=== PATIENT | female | born 1965 | race Caucasian/White ===

== ENCOUNTER → 2016-12-09 | Outpatient (CLI) | payer MEDICAID ==
--- NOTE | 2016-12-10 15:32 | MR ---
EXAM DATE: 12/09/16 PATIENT'S AGE: 51 Patient: ROB CORTES Facility: [place], [place] Site . Site : 1965 Study: MRI Spine Cervical [id number] 5:40:21 PM Ordering Physician: Debby Benton Final Report: Indication: 51-year-old female. Cervical spondylosis with myelopathy. Cervical fusion. Technique: T1-T2 and STIR sagittal images with multilevel T2 axial acquisitions. Findings: There is a cervical gibbus with the apex at C5. There is cystic spinal cord myelomalacia with at C5-6 with hazy T2 prolongation in the spinal cord from approximately the C4-5 to C6-7. Left central retropulsion at C6 indents the spinal cord. The dorsal subarachnoid space is intact. Prevertebral tissues are normal. Cerebellar tonsils normally situated. C2-3: Minor annular bulge. No significant central or foraminal narrowing. Moderate right SI arthrosis. C3-4: Mild disc bulge/marginal spurring. No significant central or foraminal narrowing. C4-5: Findings suggest interbody fusion. Central canal and foramina adequately decompressed. C5-6: Findings suggest interbody fusion. Moderate right foraminal narrowing. C6-7: Grade 1 retrolisthesis. Left central disc osteophyte complex indents the spinal cord. Mild left foraminal narrowing. C7-T1 and T1-2: Minor spondylosis. No significant central or foraminal narrowing. T2-3: No central or foraminal stenosis. T3-4: Mild spondylosis. No significant central or foraminal narrowing. T4-5: No central or foraminal stenosis. Impression MRI cervical spine/limited thoracic to T5. : 1. Cervical gibbus with apex at C5. 2. Cystic spinal cord myelomalacia at C5-6 with T2 prolongation in the spinal cord from approximately C4-5 to C6-7. 3. Retropulsion at C5 contacts the spinal cord. Dorsal subarachnoid space is intact. 4. Spondylosis/retrolisthesis/left disc osteophyte complex at C6-7 indents the left hemisphere the spinal cord. 5. Moderate right C5-6 foraminal narrowing. 6. Interbody fusions at C4-5 and C5-6. 7. Moderate C2-3 facet arthrosis. Dictated by Gene Phan MD @ Dec 10 2016 8:31AM (Electronic Signature) Report Signed by Proxy and Original Signed Document filed in the Medical Record. MTDD
== END ==
LOC: MW.MRI 16:46
PROVIDERS: ATTEND Family Medicine
DX: M47.12 Other spondylosis with myelopathy, cervical region (principal); M47.892 Other spondylosis, cervical region
CPT/HCPCS: 72141; 72141-26

== ENCOUNTER 2020-04-24 14:45 | Emergency (ER) | payer MEDICARE, MEDICAID ==
--- NOTE | 2020-04-24 15:19 | EDM.PDOC ---
ED HPI GENERAL MEDICAL PROBLEM - General Chief Complaint: Back Pain or Injury Stated Complaint: BACK PAIN Time Seen by Provider: 04/24/20 14:48 Source of Information: Reports: Patient History Limitations: Reports: No Limitations - History of Present Illness INITIAL COMMENTS - FREE TEXT/NARRATIVE: Presents reporting mid to lower back pain. The patient states that she has chronic back pain managed by fentanyl patch 100mcg q3d and oxycodone every 4 hours orally. She states that her mid back pain has intensified over the last 3-4 weeks. Now, she has so much pain it hurts her back to walk. She states that she saw her primary provider earlier today and had X-rays and blood work done. She and her room-mate are under the impression that she can come to the hospital and be admitted. She denies any other medical problems or symptoms. No bowel or bladder problems, no tingling or numbness, no dysuria or fevers, no lightheadedness. She can walk, bear weight and transfer. - Related Data Allergies Allergy/AdvReac Type Severity Reaction Status Date / Time No Known Allergies Allergy Verified 04/24/20 14:59 Home Meds: Home Meds Baclofen [Lioresal] 1 - 2 tab PO TID PRN 10/07/16 [History] amLODIPine [Norvasc] 1 tab PO DAILY 10/07/16 [History] oxyCODONE HCl/Acetaminophen [Percocet 10-325 mg Tablet] 1 tab PO QID PRN 10/07/16 [History] Docusate Sodium [Stool Softener] 50 mg PO DAILY 04/24/20 [History] Lidocaine 1 each TP DAILY 04/24/20 [History] Potassium Citrate [Potassium Citrate ER] 5 meq PO DAILY 04/24/20 [History] fentaNYL [Duragesic] 1 patch TD Q72H 04/24/20 [History] Past Medical History - Past Health History Medical/Surgical History: Denies Medical/Surgical History HEENT History: Reports: Impaired Vision Cardiovascular History: Reports: Hypertension Respiratory History: Reports: Pneumonia, Recurrent Other Respiratory History: Pneumonia Gastrointestinal History: Reports: None Genitourinary History: Reports: None 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: Musculoskeletal History: Reports: Back Pain, Chronic, Neck Pain, Chronic Other Musculoskeletal History: chronic neck pain Neurological History: Reports: None Psychiatric History: Reports: None Endocrine/Metabolic History: Reports: None Hematologic History: Reports: None Immunologic History: Reports: None Oncologic (Cancer) History: Reports: None Dermatologic History: Reports: None - Infectious Disease History Infectious Disease History: Reports: None - Past Surgical History GI Surgical History: Reports: Cholecystectomy Female Surgical History: Reports: Section Neurological Surgical History: Reports: C-Spine, Spinal Fusion, Thoracic Spine Musculoskeletal Surgical History: Reports: Other (See Below) Other Musculoskeletal Surgeries/Procedures:: Neck sugery Social & Family History - Family History Family Medical History: Noncontributory - Caffeine Use Caffeine Use: Reports: Coffee Caffeine Use Comment: 2-3cups/day ED ROS GENERAL - Review of Systems Review Of Systems: Comprehensive ROS is negative, except as noted in HPI. ED EXAM,LOWER BACK PAIN/INJURY - Physical Exam Exam: See Below Exam Limited By: No Limitations General Appearance: Alert, No Apparent Distress Ears: Normal External Exam Nose: Normal Inspection Throat/Mouth: Normal Inspection Head: Atraumatic, Normocephalic Neck: Normal Inspection Respiratory/Chest: No Respiratory Distress, Lungs Clear, Normal Breath Sounds Cardiovascular: Normal Peripheral Pulses, Regular Rate, Rhythm GI/Abdominal: Soft Back Exam: Vertebral Tenderness (T5-L5). No: CVA Tenderness (L), CVA Tenderness (R) Extremities: Normal Inspection, Normal Range of Motion Neurological: Alert, Normal Dorsiflexion, Normal Plantar Flexion, Normal Reflexes, No Motor/Sensory Deficits, Oriented x 3. No: Saddle Anesthesia, Difficulty Walking Psychiatric: Normal Affect, Normal Mood Skin Exam: Warm, Dry, Intact, Normal Color, No Rash Lymphatic: No Adenopathy Course - Vital Signs Last Recorded V/S: Last Vital Signs Temp 36.6 C 04/24/20 15:03 Pulse 102 H 04/24/20 16:13 Resp 15 04/24/20 16:13 BP 126/96 H 04/24/20 16:13 Pulse Ox 96 04/24/20 16:13 - Orders/Labs/Meds Orders: Active Orders 24 hr Category Date Time Status Abdomen Pelvis w Cont [CT] Stat Exams 04/24/20 16:25 Ordered Chest w Cont [CT] Stat Exams 04/24/20 16:27 Ordered - Re-Assessments/Exams Free Text/Narrative Re-Assessment/Exam: 04/24/20 16:[address] Chetan Guardado, the patient's primary physician. He states that he did indeed see the patient earlier this afternoon. He states that he knows the patient very well as he sees her every 3 months for the last 7 years per her pain management protocol. He states that she came in to the clinic today with a complaint that 10 days ago without provocation her mid and low chronic back pain exacerbated. He did plain film x-rays which indicated degene rative disc disease but nothing acute. Chemistries and hematology were within normal limits. She did not have an elevated white count and she was not anemic. She was having difficulty walking due to the pain. His concern was that we rule out vascular or abdominal pathology as a source of her current exacerbation. In addition, admission for pain control may be a consideration. Free Text/Narrative Re-Assessment/Exam: 04/24/20 19:28 Patient was given Toradol IV and then walked in the [place]ajardo without assistance, up and down out of chair. Steady on feet. No complaint of pain. Departure - Departure Time of Disposition: 19:29 Disposition: Home, Self-Care 01 Condition: Fair Clinical Impression: Lumbar disc disease, Thoracic disc disease - Discharge Information Instructions: Chronic Back Pain Referrals: Chetan Guardado MD [Primary Care Provider] - Forms: ED Department Discharge Additional Instructions: The following information is given to patients seen in the emergency department who are being discharged to home. This information is to outline your options for follow-up care. We provide all patients seen in our emergency department with a follow-up referral. The need for follow-up, as well as the timing and circumstances, are variable depending upon the specifics of your emergency department visit. If you don't have a primary care physician on staff, we will provide you with a referral. We always advise you to contact your personal physician following an emergency department visit to inform them of the circumstance of the visit and for follow-up with them and/or the need for any referrals to a consulting specialist. The emergency department will also refer you to a specialist when appropriate. This referral assures that you have the opportunity for follow-up care with a specialist. All of these measure are taken in an effort to provide you with optimal care, which includes your follow-up. Under all circumstances we always encourage you to contact your private physician who remains a resource for coordinating your care. When calling for follow-up care, please make the office aware that this follow-up is from your recent emergency room visit. If for any reason you are refused follow-up, please contact the [facility] Emergency Department at and asked to speak to the emergency department charge nurse. 1. Were able to get up, transfer from and to a chair and to bed and walk in the hallway unassisted. 2. Continue your current pain management regimen 3. Ask your physician for an order for physical therapy 4. Follow up with Dr. Guardado Sepsis Event Note (ED) - Focused Exam Vital Signs: Vital Signs Temp Pulse Resp BP Pulse Ox 04/24/20 16:13 102 H 15 126/96 H 96 04/24/20 15:03 36.6 C 110 H 15 132/90 99 - My Orders Last 24 Hours: My Active Orders 04/24/20 16:25 Abdomen Pelvis w Cont [CT] Stat 04/24/20 16:27 Chest w Cont [CT] Stat - Assessment/Plan Last 24 Hours: My Active Orders 04/24/20 16:25 Abdomen Pelvis w Cont [CT] Stat 04/24/20 16:27 Chest w Cont [CT] Stat
[2020-04-24] MEDS ORDERED: Iopamidol 755 Mg/ML 100 ML Bottle IVPUSH STA (17:17)
--- NOTE | 2020-04-24 17:38 | CT ---
CT abdomen and pelvis Technique: Multiple axial sections were obtained from above the dome of the diaphragm inferiorly through the pubic symphysis. Intravenous contrast was utilized. No oral contrast has been given. Comparison: No prior abdominal imaging is available. Findings: 2 small adjacent abnormalities are noted within the dome of the right lobe of the liver most likely representing minimal cysts. Spleen appears within normal limits in size. There is a small amount of subcapsular low density being seen next to the spleen most likely due to small amount of old subcapsular blood. Adrenal glands show no nodule. Pancreas shows no discrete abnormality. CBD is dilated up to 1.5 cm. Prior cholecystectomy appears to be present. Kidneys show symmetric contrast enhancement without hydronephrosis or mass. Aorta shows no aneurysm with atherosclerotic change. This atherosclerotic change continues into the iliac vessels. Appendix is seen which is normal. No pelvic mass or adenopathy is seen. No free fluid or inflammatory change is appreciated. Fluid filled small bowel is noted which does not appear to be dilated. Bone window settings were reviewed which show scattered degenerative change within the spine. Impression: 1. Dilated CBD at 1.5 cm. This may be residual from prior cholecystectomy but please correlate that patient has no abnormal biliary enzymes. 2. Small amount of subcapsular fluid adjacent to the spleen most likely representing an old and small subcapsular hematoma. 3. Other nonacute findings as noted above. Diagnostic code #3 This report was dictated in MDT
--- NOTE | 2020-04-24 17:38 | CT ---
CT chest Technique: Multiple axial sections through the chest were obtained. Intravenous contrast was utilized. Findings: Aorta shows atherosclerotic change without aneurysm or dissection. Pulmonary arteries show no discrete pulmonary embolism within the visualized pulmonary arteries. Mediastinum and hilar regions show no adenopathy. No axillary adenopathy is noted. Very minimal pericardial effusion is seen. Lungs show emphysematous change. No acute parenchymal change is appreciated. Bone window settings were reviewed. Old right-sided rib fractures are noted which appear healed. Previous lower cervical spine surgery is noted. Mild scattered disc space narrowing and endplate spurring is noted within the thoracic spine. Impression: 1. Findings believed incidental as noted above. 2. Emphysematous change. 3. Nothing acute is seen. Diagnostic code #2 This report was dictated in MDT
[2020-04-24] MEDS ORDERED: Ketorolac 30 MG/ML SDV IVPUSH ONE (18:27)
[2020-04-24 19:35] VITALS: BP 128/74; PULSE 87
== END 2020-04-24 19:44 | disposition home or self-care (01) ==
LOC: MW.ED 14:45
DX: M51.9 Unspecified thoracic, thoracolumbar and lumbosacral intervertebral disc disorder (principal); I10 Essential (primary) hypertension; Z98.890 Other specified postprocedural states; Z79.899 Other long term (current) drug therapy
CPT/HCPCS: 71260; 74177; 96374; 99283; J1885; Q9967; 99284

== ENCOUNTER 2021-08-14 13:58 | Inpatient (IN) | payer MEDICARE, MEDICAID ==
--- NOTE | 2021-08-14 14:36 | EDM.PDOC ---
ED HPI GENERAL MEDICAL PROBLEM - General Chief Complaint: General Stated Complaint: EMS Time Seen by Provider: 08/14/21 14:10 general Pain Score (Numeric/FACES): 10 - Related Data Allergies Allergy/AdvReac Type Severity Reaction Status Date / Time No Known Allergies Allergy Verified 08/14/21 14:01 Home Meds: Home Meds Baclofen [Lioresal] 1 - 2 tab PO TID PRN 10/07/16 [History] amLODIPine [Norvasc] 1 tab PO DAILY 10/07/16 [History] oxyCODONE HCl/Acetaminophen [Percocet 10-325 mg Tablet] 1 tab PO QID PRN 10/07/16 [History] Docusate Sodium [Stool Softener] 50 mg PO DAILY 04/24/20 [History] Lidocaine 1 each TP DAILY 04/24/20 [History] Potassium Citrate [Potassium Citrate ER] 5 meq PO DAILY 04/24/20 [History] fentaNYL [Duragesic] 1 patch TD Q72H 04/24/20 [History] Past Medical History - Past Health History Medical/Surgical History: Denies Medical/Surgical History HEENT History: Reports: Impaired Vision Cardiovascular History: Reports: Hypertension Respiratory History: Reports: Pneumonia, Recurrent Other Respiratory History: Pneumonia Gastrointestinal History: Reports: None Genitourinary History: Reports: None 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: Musculoskeletal History: Reports: Back Pain, Chronic, Neck Pain, Chronic Other Musculoskeletal History: chronic neck pain Neurological History: Reports: None Psychiatric History: Reports: None Endocrine/Metabolic History: Reports: None Hematologic History: Reports: None Immunologic History: Reports: None Oncologic (Cancer) History: Reports: None Dermatologic History: Reports: None - Infectious Disease History Infectious Disease History: Reports: None - Past Surgical History Head Surgeries/Procedures: Reports: None HEENT Surgical History: Reports: None Cardiovascular Surgical History: Reports: None GI Surgical History: Reports: Cholecystectomy Female Surgical History: Reports: Section Endocrine Surgical History: Reports: None Neurological Surgical History: Reports: C-Spine, Spinal Fusion, Thoracic Spine Musculoskeletal Surgical History: Reports: Other (See Below) Other Musculoskeletal Surgeries/Procedures:: Neck sugery Oncologic Surgical History: Reports: None Dermatological Surgical History: Reports: None Social & Family History - Family History Family Medical History: No Pertinent Family History - Caffeine Use Caffeine Use: Reports: Coffee Caffeine Use Comment: 2-3cups/day #1 Interpretation EKG Interpretation Comments: EKG done 08/14/2021 at 2:15 PM shows sinus tachycardia heart rate 117 [place] 117 QT duration [address] [place] [address] changes consistent with possible ischemia compared to 10/07/2016 no change impression no acute ischemia Course - Vital Signs Last Recorded V/S: Last Vital Signs Temp 36.8 C 08/14/21 14:01 Pulse 92 08/14/21 15:20 Resp 16 08/14/21 15:20 BP 96/63 08/14/21 15:20 Pulse Ox 98 08/14/21 15:20 - Orders/Labs/Meds Orders: Active Orders 24 hr Category Date Time Status RT Aerosol Therapy [RC] ASDIRECTED Care 08/14/21 14:41 Active Ang Chest [CT] Stat Exams 08/14/21 17:15 Taken CULTURE BLOOD [BC] Stat Lab 08/14/21 16:21 Results CULTURE BLOOD [BC] Stat Lab 08/14/21 16:41 Received UA RFX ARPITA AND CULT IF INDIC [URIN] Stat Lab 08/14/21 14:40 Ordered Azithromycin [Zithromax] 500 mg Med 08/14/21 16:45 Active Sodium Chloride 0.9% [Normal Saline AdvBag] 250 ml IV ONETIME cefTRIAXone [Rocephin in Dextrose,Iso-Osm 1 GM/50 ML] 1 Med 08/14/21 17:25 Active gm Premix Bag 1 bag IV ONETIME Blood Culture x2 Reflex Set [OM.PC] Stat Oth 08/14/21 15:57 Ordered Medication Orders Azithromycin 500 mg/ Sodium (Chloride) 250 mls @ 250 mls/hr IV ONETIME ONE Stop: 08/14/21 17:44 Ceftriaxone Sodium/Dextrose 1 (gm/ Premix) 50 mls @ 100 mls/hr IV ONETIME ONE Stop: 08/14/21 17:54 Labs: Laboratory Tests 08/14/21 08/14/21 08/14/21 Range/Units 14:50 15:13 15:13 WBC 13.40 H (4.0-11.0) K/uL RBC 4.83 (4.30-5.90) M/uL Hgb 16.3 H (12.0-16.0) g/dL Hct 45.1 (36.0-46.0) % MCV 93.4 (80.0-98.0) fL MCH 33.7 H (27.0-32.0) pg MCHC 36.1 (31.0-37.0) g/dL RDW Std Deviation 43.3 (28.0-62.0) fl RDW Coeff of Carrie 13 (11.0-15.0) % Plt Count 294 (150-400) K/uL MPV 10.20 (7.40-12.00) fL Neut % (Auto) 73.4 (48.0-80.0) % Lymph % (Auto) 15.5 L (16.0-40.0) % [place] % (Auto) 10.2 (0.0-15.0) % Eos % (Auto) 0.8 (0.0-7.0) % Baso % (Auto) 0.1 (0.0-1.5) % Neut # (Auto) 9.8 H (1.4-5.7) K/uL Lymph # (Auto) 2.1 (0.6-2.4) K/uL [place] # (Auto) 1.4 H (0.0-0.8) K/uL Eos # (Auto) 0.1 (0.0-0.7) K/uL Baso # (Auto) 0.0 (0.0-0.1) K/uL Nucleated RBC % 0.0 /100WBC Nucleated RBCs # 0 K/uL D-Dimer, Quantitative (0.0-0.50) mg/L FEU Sodium 135 L (136-145) mmol/L Potassium 3.5 (3.5-5.1) mmol/L Chloride 94 L (98-107) mmol/L Carbon Dioxide 19.0 L (21.0-32.0) mmol/L BUN 16 (7.0-18.0) mg/dL Creatinine 0.7 (0.6-1.0) mg/dL Est Cr Clr Drug Dosing 74.23 mL/min Estimated GFR (MDRD) > 60.0 ml/min Glucose 73 L (74-106) mg/dL Lactic Acid (0.4-2.0) mmol/L Calcium 9.5 (8.5-10.1) mg/dL Total Bilirubin 0.5 (0.2-1.0) mg/dL AST 31 (15-37) IU/L ALT 27 (14-63) IU/L Alkaline Phosphatase 126 H (46-116) U/L Troponin I < 0.050 (0.000-0.056) ng/mL Total Protein 8.0 (6.4-8.2) g/dL Albumin 3.6 (3.4-5.0) g/dL Globulin 4.4 H (2.6-4.0) g/dL Albumin/Globulin Ratio 0.8 L (0.9-1.6) Lipase 271 (73-393) U/L Influenza Type A RNA NEGATIVE (NEGATIVE) Influenza Type B RNA NEGATIVE (NEGATIVE) SARS-CoV-2 RNA (CLAY) NEGATIVE (NEGATIVE) 08/14/21 08/14/21 Range/Units 15:46 15:46 WBC (4.0-11.0) K/uL RBC (4.30-5.90) M/uL Hgb (12.0-16.0) g/dL Hct (36.0-46.0) % MCV (80.0-98.0) fL MCH (27.0-32.0) pg MCHC (31.0-37.0) g/dL RDW Std Deviation (28.0-62.0) fl RDW Coeff of Carrie (11.0-15.0) % Plt Count (150-400) K/uL MPV (7.40-12.00) fL Neut % (Auto) (48.0-80.0) % Lymph % (Auto) (16.0-40.0) % [place] % (Auto) (0.0-15.0) % Eos % (Auto) (0.0-7.0) % Baso % (Auto) (0.0-1.5) % Neut # (Auto) (1.4-5.7) K/uL Lymph # (Auto) (0.6-2.4) K/uL [place] # (Auto) (0.0-0.8) K/uL Eos # (Auto) (0.0-0.7) K/uL Baso # (Auto) (0.0-0.1) K/uL Nucleated RBC % /100WBC Nucleated RBCs # K/uL D-Dimer, Quantitative 0.60 H (0.0-0.50) mg/L FEU Sodium (136-145) mmol/L Potassium (3.5-5.1) mmol/L Chloride (98-107) mmol/L Carbon Dioxide (21.0-32.0) mmol/L BUN (7.0-18.0) mg/dL Creatinine (0.6-1.0) mg/dL Est Cr Clr Drug Dosing mL/min Estimated GFR (MDRD) ml/min Glucose (74-106) mg/dL Lactic Acid 2.0 (0.4-2.0) mmol/L Calcium (8.5-10.1) mg/dL Total Bilirubin (0.2-1.0) mg/dL AST (15-37) IU/L ALT (14-63) IU/L Alkaline Phosphatase (46-116) U/L Troponin I (0.000-0.056) ng/mL Total Protein (6.4-8.2) g/dL Albumin (3.4-5.0) g/dL Globulin (2.6-4.0) g/dL Albumin/Globulin Ratio (0.9-1.6) Lipase (73-393) U/L Influenza Type A RNA (NEGATIVE) Influenza Type B RNA (NEGATIVE) SARS-CoV-2 RNA (CLAY) (NEGATIVE) Meds: Medications Generic Name Dose Route Start Last Admin Trade Name Freq PRN Reason Stop Dose Admin Azithromycin 500 mg/ Sodium 250 mls @ 250 mls/hr 08/14/21 16:45 Chloride IV 08/14/21 17:44 ONETIME ONE Ceftriaxone Sodium/Dextrose 1 50 mls @ 100 mls/hr 08/14/21 17:25 gm/ Premix IV 08/14/21 17:54 ONETIME ONE Discontinued Medications Generic Name Dose Route Start Last Admin Trade Name Freq PRN Reason Stop Dose Admin Albuterol/Ipratropium 9 ml 08/14/21 14:41 08/14/21 14:50 Albuterol/Ipratropium 3.0-0.5 Mg/3 Ml Neb Soln NEB 08/14/21 14:42 9 ml ONETIME ONE Administration Sodium Chloride 1,000 mls @ 999 mls/hr 08/14/21 14:40 08/14/21 14:51 Normal Saline IV 08/14/21 15:40 999 mls/hr BOLUS ONE Administration Azithromycin 500 mg/ Sodium 250 mls @ 250 mls/hr 08/14/21 16:00 08/14/21 16:48 Chloride IV 250 mls/hr ONETIME ESPERANZA Administration Cefotaxime Sodium 1,000 mg/ 50 mls @ 100 mls/hr 08/14/21 15:58 Sodium Chloride IV 08/14/21 15:59 ONETIME ONE Cefotaxime Sodium 1,000 mg/ 50 mls @ 100 mls/hr 08/14/21 16:45 Sodium Chloride IV 08/14/21 17:14 ONETIME ONE Iopamidol 100 ml 08/14/21 17:15 08/14/21 17:16 Iopamidol 755 Mg/Ml 500 Ml Multipack Bottle IVPUSH 08/14/21 17:16 100 ml ONETIME STA Administration Methylprednisolone Sodium Succinate 125 mg 08/14/21 14:42 08/14/21 14:50 Methylprednisolone Sodium Succinate 125 Mg/2 Ml Sdv IVPUSH 08/14/21 14:43 125 mg ONETIME ONE Administration Departure - Discharge Information Referrals: Chetan Guardado MD [Primary Care Provider] - Forms: ED Department Discharge Sepsis Event Note (ED) - Evaluation Sepsis Screening Result: No Definite Risk - Focused Exam Vital Signs: Vital Signs Temp Pulse Resp BP Pulse Ox 08/14/21 15:20 92 16 96/63 98 08/14/21 14:01 36.8 C 119 H 20 127/86 96
[2021-08-14] MEDS ORDERED: Sodium Chloride 0.9% 1,000 ML IV ONE ×2 (14:40→18:30)
[2021-08-14] MEDS ORDERED: Albuterol/Ipratropium 3.0-0.5 MG/3 ML Neb Soln NEB ONE (14:41)
[2021-08-14] MEDS ORDERED: methylPREDNISolone Sodium Succinate 125 MG/2 ML SDV IVPUSH ONE (14:42)
--- NOTE | 2021-08-14 15:47 | CR ---
INDICATION: Hypoxia. TECHNIQUE: Chest 1 view. COMPARISON: CT chest 04/24/2020. Chest radiograph 10/07/2016. FINDINGS: There is a subtle patchy opacity in the left midlung laterally. No pleural effusion or pneumothorax. Pulmonary hyperinflation. Normal heart size and pulmonary vascularity. Small hiatal hernia. Cervicothoracic fusion hardware. IMPRESSION: Subtle patchy opacity in the left midlung suspicious for pneumonia. Dictated by Mercedes Duarte MD @ 08/14/2021 3:47:33 PM (Electronically Signed)
[2021-08-14 15:55] LABS: CHLORIDE,CL 94 mmol/L (98-107); POTASSIUM,K 3.5 mmol/L (3.5-5.1); SODIUM,NA 135 mmol/L (136-145)
[2021-08-14] MEDS ORDERED: Cefotaxime 1,000 MG in Sodium Chloride 0.9% 50 ML IV ONE ×2 (15:58→16:45)
[2021-08-14] MEDS ORDERED: Azithromycin 500 MG in Sodium Chloride 0.9% 250 ML IV SCH (16:00)
[2021-08-14 16:10] LABS: BLOOD UREA NITROGEN,BUN 16 mg/dL (7.0-18.0); GLUCOSE RANDOM 73 mg/dL (74-106); LIPASE 271 U/L (73-393)
[2021-08-14 16:10] LABS: CORONAVIRUS COVID-19 NAA NEGATIVE (NEGATIVE); INFLUENZA A NAA NEGATIVE (NEGATIVE); INFLUENZA B NAA NEGATIVE (NEGATIVE)
--- NOTE | 2021-08-14 16:15 | EDM.PDOC ---
ED HPI GENERAL MEDICAL PROBLEM - General Chief Complaint: General Stated Complaint: EMS Time Seen by Provider: 08/14/21 14:10 Source of Information: Reports: Patient History Limitations: Reports: No Limitations - History of Present Illness INITIAL COMMENTS - FREE TEXT/NARRATIVE: HISTORY AND PHYSICAL: History of present illness: Patient is a 55-year-old female with a history of prior pneumonia, neck fusion, who presents emergency room today with concern of leg weakness making it difficult to ambulate. Patient has been having worsening leg weakness over the past 1 month and states that in general, she is a poor ambulation. Patient states that she does require a cane with ambulation per her baseline. Patient states that over the course of the past 1 month, she has steadily been able to walk less and less before she gets tired and her legs give out. Patient states that she does have a history of chronic low back pain and neck pain but denies any change in this. Patient denies any sensation changes. Patient states that she also has a cough but states that she does smoke. Patient denies any other associated symptoms. Patient denies fever, chills, chest pain, shortness of breath. Denies headache, neck stiff ness, change in vision, syncope, or near syncope. Denies nausea, vomiting, abdominal pain, diarrhea, constipation, or dysuria. Has not noted any blood in urine or stool. Patient has been eating and drinking appropriately. Review of systems: As per history of present illness and below otherwise all systems reviewed and negative. Past medical history: As per history of present illness and as reviewed below otherwise noncontributory. Surgical history: As per history of present illness and as reviewed below otherwise noncontributory. Social history: See social history for further information Family history: As per history of present illness and as reviewed below otherwise noncontributory. Physical exam: General: Patient is alert, oriented, and in no acute distress. Patient laying comfortably on exam table. Patient is tachycardic 120s on exam, otherwise vitally stable and reviewed by me. Likely ill-appearing. HEENT: Atraumatic, normocephalic, pupils equal and reactive bilaterally, negative for conjunctival pallor or scleral icterus, mucous membranes moist, throat clear, neck supple, nontender, trachea midline. No drooling or trismus noted. No meningeal signs. No hot potato voice noted. Lungs: Wet cough on exam, diffuse wheezing throughout all lung guajardo to auscultation with fine crackles of the RLL. Otherwise, breath sounds equal bilaterally, chest nontender. Patient speaking clearly without breathlessness, no stridor, no accessory muscle use or respiratory distress. Heart: Tachycardic, S1S2, regular rate and rhythm without overt murmur Abdomen: Soft, nondistended, nontender. Negative for masses or hepatosplenomegaly. Negative for costovertebral tenderness. Pelvis: Stable nontender. Genitourinary: Deferred. Rectal: Deferred. Skin: Intact, warm, dry. No lesions or rashes noted. Extremities: No obvious deformity in the complete spine. No step-offs, crepitus, or point tenderness to palpation of the complete spine. Scarring of the cervical spine consistent with surgical history. Straight leg raise intact bilaterally. Patellar reflexes intact bilaterally. Patient does have full range of motion of bilateral lower extremities without deficit. Intact strength bilateral lower extremities. Dorsalis pedis posterior tibial pulses are grossly intact of bilateral lower extremities with capillary refill less than 2 seconds. Patient is able to only take 2-3 steps before becoming weak and tired. Her oxygen does drop to 80% during this event and heart rate increase to 150s. Otherwise, atraumatic, negative for cords or calf pain. Neurovascular unremarkable. Neuro: Awake, alert, oriented. Cranial nerves II through XII unremarkable. Shuffle gait noted. Patient is hunched over at the cervical spine. Baseline per patient. Medical Decision Making: Patient is a 55-year-old female with a history of hypertension, prior pneumonia, and neck fusion who presents emergency room today with concern of bilateral lower extremity weakness progressive over the past 1 month. Upon arrival to the ED, patient is tachycardic 120s on exam, is otherwise vitally stable and well- appearing on exam. Patient also noted to have a wet productive cough on exam with wheezing throughout all lung guajardo and fine crackles of the right lower lobe. Patient is otherwise breathing comfortably with no sign of respiratory distress. Patient is neurovascularly intact of her lower extremities and does have full strength and range of motion. However, with ambulation, patient is only able to take 2-3 steps before becoming weak and unable to continue. During this, patient does drop to 80% on her oxygen and her heart rate increases to 150s. Patient was quickly transferred back to the bed and her heart rate has come back down to 120s and oxygen 93. Patient also noted to have a shuffled gait at bedside and is hunched over as per her baseline according to patient. At this time, will obtain cardiac evaluation, provide NS bolus, and reassess patient. See Dr. Arroyo's dictation for specific EKG interpretation. Otherwise, sinus tachycardia without acute changes or STEMI. CXR shows subtle patchy opacity in the left midlung suspicious for pneumonia. CBC does show mild leukocytosis with white blood cell count 13.4, otherwise mild derangements of CBC are unremarkable. D-dimer is elevated at 0.6 so will obtain angiography of the chest. CMP does show mild hyponatremia at 135, hypochloremia 94. CO2 is decreased at 19. Patient is mildly hyperglycemic with a glucose of 73. She is provided with a meal and eating this at bedside. Lactic acid is within normal limits to. Blood cultures x2 are pending. Alk phos is elevated in isolation at 126. Troponin negative. Urinalysis is clear of infection. Influenza/COVID negative. Angiography of the chest is negative for pulmonary embolism. Moderate emphysema. Mild patchy and reticular groundglass opacities in the posterior upper lobes and base of the left lower lobe are likely infectious. There is also a prominent bronchial wall thickening suggesting bronchitis. Upon reevaluation of patient, she remains tachycardic 120s to 130s. She is currently on 2 L and right at 90 to 92%. Patient is otherwise vitally stable. Did call and speak to the hospitalist on-call, Dr. Lopez, and thoroughly discussed patient's case. Will admit to inpatient to Dr. Lopez on telemetry. Voices understanding and is agreeable to plan of care. Denies any further questions or concerns at this time. Diagnostics: EKG, CBC, CMP, UA, Lactate, Blood culture x 2, COVID/Flu, Ddimer Therapeutics: Duoneb x 3, Solumedrol, Azithromycin, Rocephin Impression: Acute community acquired pneumonia with hypoxia Acute COPD exacerbation secondary to pneumonia with hypoxia Plan: Admit to inpatient to Dr. Lopez on telemetry. Definitive disposition and diagnosis as appropriate pending reevaluation and review of above. general Pain Score (Numeric/FACES): 10 - Related Data Allergies Allergy/AdvReac Type Severity Reaction Status Date / Time No Known Allergies Allergy Verified 08/14/21 14:01 Home Meds: Home Meds Baclofen [Lioresal] 1 - 2 tab PO TID PRN 10/07/16 [History] amLODIPine [Norvasc] 1 tab PO DAILY 10/07/16 [History] oxyCODONE HCl/Acetaminophen [Percocet 10-325 mg Tablet] 1 tab PO QID PRN 10/07/16 [History] Docusate Sodium [Stool Softener] 50 mg PO DAILY 04/24/20 [History] Lidocaine 1 each TP DAILY 04/24/20 [History] Potassium Citrate [Potassium Citrate ER] 5 meq PO DAILY 04/24/20 [History] fentaNYL [Duragesic] 1 patch TD Q72H 04/24/20 [History] Past Medical History - Past Health History Medical/Surgical History: Denies Medical/Surgical History HEENT History: Reports: Impaired Vision Cardiovascular History: Reports: Hypertension Respiratory History: Reports: Pneumonia, Recurrent Other Respiratory History: Pneumonia Gastrointestinal History: Reports: None Genitourinary History: Reports: None 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: Reports: Musculoskeletal History: Reports: Back Pain, Chronic, Neck Pain, Chronic Other Musculoskeletal History: chronic neck pain Neurological History: Reports: None Psychiatric History: Reports: None Endocrine/Metabolic History: Reports: None Hematologic History: Reports: None Immunologic History: Reports: None Oncologic (Cancer) History: Reports: None Dermatologic History: Reports: None - Infectious Disease History Infectious Disease History: Reports: None - Past Surgical History Head Surgeries/Procedures: Reports: None HEENT Surgical History: Reports: None Cardiovascular Surgical History: Reports: None GI Surgical History: Reports: Cholecystectomy Female Surgical History: Reports: Section Endocrine Surgical History: Reports: None Neurological Surgical History: Reports: C-Spine, Spinal Fusion, Thoracic Spine Musculoskeletal Surgical History: Reports: Other (See Below) Other Musculoskeletal Surgeries/Procedures:: Neck sugery Oncologic Surgical History: Reports: None Dermatological Surgical History: Reports: None Social & Family History - Family History Family Medical History: No Pertinent Family History - Caffeine Use Caffeine Use: Reports: Coffee Caffeine Use Comment: 2-3cups/day ED ROS GENERAL - Review of Systems Review Of Systems: Comprehensive ROS is negative, except as noted in HPI. ED EXAM, GENERAL - Physical Exam Exam: See Below (see dictation) Course - Vital Signs Last Recorded V/S: Last Vital Signs Temp 98.2 F 12/29/21 14:01 Pulse 103 H 08/14/21 20:02 Resp 20 08/14/21 20:02 BP 90/50 L 08/14/21 20:02 Pulse Ox 94 L 08/14/21 21:57 - Orders/Labs/Meds Orders: Active Orders 24 hr Category Date Time Status RT Aerosol Therapy [RC] ASDIRECTED Care 08/14/21 14:41 Active CULTURE BLOOD [BC] Stat Lab 08/14/21 16:21 Results CULTURE BLOOD [BC] Stat Lab 08/14/21 16:41 Received CULTURE URINE [MREF] Stat Lab 08/14/21 18:00 Received Blood Culture x2 Reflex Set [OM.PC] Stat Oth 08/14/21 15:57 Ordered Medication Orders Albuterol/Ipratropium (Albuterol/Ipratropium 3.0-0.5 Mg/3 Ml Neb Soln) 3 ml NEB Q6HRRT [facility] Azithromycin (Azithromycin 500 Mg Vial) 500 mg IV Q24H [facility] Baclofen (Baclofen 10 Mg Tab) 10 mg PO TID PRN PRN Reason: Pain Enoxaparin Sodium (Enoxaparin 40 Mg/0.4 Ml Syringe) 40 mg SUBCUT Q24H [facility] Last Admin: 08/14/21 22:20 Dose: 40 mg Documented by: FALLPAT Fentanyl (Fentanyl 100 Mcg/Hr Transdermal Patch) mcg TRDERM Q72H [facility] Ceftriaxone Sodium/Dextrose 1 (gm/ Premix) 50 mls @ 100 mls/hr IV Q24H [facility] Methylprednisolone Sodium Succinate (Methylprednisolone Sodium Succinate 40 Mg/1 Ml Sdv) 40 mg IVPUSH Q8H [facility] Last Admin: 08/14/21 22:20 Dose: 40 mg Documented by: FALLPAT Non-Formulary Medication (Docusate Sodium [Stool Softener]) 50 mg PO DAILY [facility] Non-Formulary Medication (Lidocaine) 1 each TP DAILY [facility] Oxycodone/Acetaminophen (Acetaminophen/Oxycodone 325-10 Mg Tab) 1 tab PO QID PRN PRN Reason: Pain Labs: Laboratory Tests 08/14/21 08/14/21 08/14/21 Range/Units 14:50 15:13 15:13 WBC 13.40 H (4.0-11.0) K/uL RBC 4.83 (4.30-5.90) M/uL Hgb 16.3 H (12.0-16.0) g/dL Hct 45.1 (36.0-46.0) % MCV 93.4 (80.0-98.0) fL MCH 33.7 H (27.0-32.0) pg MCHC 36.1 (31.0-37.0) g/dL RDW Std Deviation 43.3 (28.0-62.0) fl RDW Coeff of Carrie 13 (11.0-15.0) % Plt Count 294 (150-400) K/uL MPV 10.20 (7.40-12.00) fL Neut % (Auto) 73.4 (48.0-80.0) % Lymph % (Auto) 15.5 L (16.0-40.0) % [place] % (Auto) 10.2 (0.0-15.0) % Eos % (Auto) 0.8 (0.0-7.0) % Baso % (Auto) 0.1 (0.0-1.5) % Neut # (Auto) 9.8 H (1.4-5.7) K/uL Lymph # (Auto) 2.1 (0.6-2.4) K/uL [place] # (Auto) 1.4 H (0.0-0.8) K/uL Eos # (Auto) 0.1 (0.0-0.7) K/uL Baso # (Auto) 0.0 (0.0-0.1) K/uL Nucleated RBC % 0.0 /100WBC Nucleated RBCs # 0 K/uL D-Dimer, Quantitative (0.0-0.50) mg/L FEU Sodium 135 L (136-145) mmol/L Potassium 3.5 (3.5-5.1) mmol/L Chloride 94 L (98-107) mmol/L Carbon Dioxide 19.0 L (21.0-32.0) mmol/L BUN 16 (7.0-18.0) mg/dL Creatinine 0.7 (0.6-1.0) mg/dL Est Cr Clr Drug Dosing 74.23 mL/min Estimated GFR (MDRD) > 60.0 ml/min Glucose 73 L (74-106) mg/dL Lactic Acid (0.4-2.0) mmol/L Calcium 9.5 (8.5-10.1) mg/dL Total Bilirubin 0.5 (0.2-1.0) mg/dL AST 31 (15-37) IU/L ALT 27 (14-63) IU/L Alkaline Phosphatase 126 H (46-116) U/L Troponin I < 0.050 (0.000-0.056) ng/mL Total Protein 8.0 (6.4-8.2) g/dL Albumin 3.6 (3.4-5.0) g/dL Globulin 4.4 H (2.6-4.0) g/dL Albumin/Globulin Ratio 0.8 L (0.9-1.6) Lipase 271 (73-393) U/L Urine Color Urine Appearance Urine pH (5.0-8.0) Ur Specific [place] (1.001-1.035) Urine Protein (NEGATIVE) mg/dL Urine Glucose (UA) (NEGATIVE) mg/dL Urine Ketones (NEGATIVE) mg/dL Urine Occult Blood (NEGATIVE) Urine Nitrite (NEGATIVE) Urine Bilirubin (NEGATIVE) Urine Urobilinogen (<2.0) EU/dL Ur Leukocyte Esterase (NEGATIVE) Urine RBC (0-2/HPF) Urine WBC (0-5/HPF) Ur Epithelial Cells (NONE-FEW) Urine Bacteria (NEGATIVE) Influenza Type A RNA NEGATIVE (NEGATIVE) Influenza Type B RNA NEGATIVE (NEGATIVE) SARS-CoV-2 RNA (CLAY) NEGATIVE (NEGATIVE) 08/14/21 08/14/21 08/14/21 Range/Units 15:46 15:46 18:00 WBC (4.0-11.0) K/uL RBC (4.30-5.90) M/uL Hgb (12.0-16.0) g/dL Hct (36.0-46.0) % MCV (80.0-98.0) fL MCH (27.0-32.0) pg MCHC (31.0-37.0) g/dL RDW Std Deviation (28.0-62.0) fl RDW Coeff of Carrie (11.0-15.0) % Plt Count (150-400) K/uL MPV (7.40-12.00) fL Neut % (Auto) (48.0-80.0) % Lymph % (Auto) (16.0-40.0) % [place] % (Auto) (0.0-15.0) % Eos % (Auto) (0.0-7.0) % Baso % (Auto) (0.0-1.5) % Neut # (Auto) (1.4-5.7) K/uL Lymph # (Auto) (0.6-2.4) K/uL [place] # (Auto) (0.0-0.8) K/uL Eos # (Auto) (0.0-0.7) K/uL Baso # (Auto) (0.0-0.1) K/uL Nucleated RBC % /100WBC Nucleated RBCs # K/uL D-Dimer, Quantitative 0.60 H (0.0-0.50) mg/L FEU Sodium (136-145) mmol/L Potassium (3.5-5.1) mmol/L Chloride (98-107) mmol/L Carbon Dioxide (21.0-32.0) mmol/L BUN (7.0-18.0) mg/dL Creatinine (0.6-1.0) mg/dL Est Cr Clr Drug Dosing mL/min Estimated GFR (MDRD) ml/min Glucose (74-106) mg/dL Lactic Acid 2.0 (0.4-2.0) mmol/L Calcium (8.5-10.1) mg/dL Total Bilirubin (0.2-1.0) mg/dL AST (15-37) IU/L ALT (14-63) IU/L Alkaline Phosphatase (46-116) U/L Troponin I (0.000-0.056) ng/mL Total Protein (6.4-8.2) g/dL Albumin (3.4-5.0) g/dL Globulin (2.6-4.0) g/dL Albumin/Globulin Ratio (0.9-1.6) Lipase (73-393) U/L Urine Color YELLOW Urine Appearance SLT CLOUDY Urine pH 5.5 (5.0-8.0) Ur Specific [place] 1.010 (1.001-1.035) Urine Protein TRACE H (NEGATIVE) mg/dL Urine Glucose (UA) NEGATIVE (NEGATIVE) mg/dL Urine Ketones 40 H (NEGATIVE) mg/dL Urine Occult Blood MODERATE H (NEGATIVE) Urine Nitrite NEGATIVE (NEGATIVE) Urine Bilirubin SMALL H (NEGATIVE) Urine Urobilinogen 0.2 (<2.0) EU/dL Ur Leukocyte Esterase SMALL H (NEGATIVE) Urine RBC 0-2 (0-2/HPF) Urine WBC 0-2 (0-5/HPF) Ur Epithelial Cells OCCASIONAL (NONE-FEW) Urine Bacteria FEW (NEGATIVE) Influenza Type A RNA (NEGATIVE) Influenza Type B RNA (NEGATIVE) SARS-CoV-2 RNA (CLAY) (NEGATIVE) Meds: Medications Generic Name Dose Route Start Last Admin Trade Name Freq PRN Reason Stop Dose Admin Albuterol/Ipratropium 3 ml 08/15/21 00:00 Albuterol/Ipratropium 3.0-0.5 Mg/3 Ml Neb Soln NEB Q6HRRT [facility] Azithromycin 500 mg 08/15/21 16:00 Azithromycin 500 Mg Vial IV Q24H [facility] Baclofen 10 mg 08/14/21 21:51 Baclofen 10 Mg Tab PO TID PRN Pain Enoxaparin Sodium 40 mg 08/14/21 22:00 08/14/21 22:20 Enoxaparin 40 Mg/0.4 Ml Syringe SUBCUT 40 mg Q24H [facility] Administration Fentanyl mcg 08/14/21 22:00 Fentanyl 100 Mcg/Hr Transdermal Patch TRDERM Q72H [facility] Ceftriaxone Sodium/Dextrose 1 50 mls @ 100 mls/hr 08/15/21 16:00 gm/ Premix IV Q24H [facility] Methylprednisolone Sodium Succinate 40 mg 08/14/21 22:00 08/14/21 22:20 Methylprednisolone Sodium Succinate 40 Mg/1 Ml Sdv IVPUSH 40 mg Q8H [facility] Administration Non-Formulary Medication 50 mg 08/15/21 09:00 Docusate Sodium [Stool Softener] PO DAILY [facility] Non-Formulary Medication 1 each 08/15/21 09:00 Lidocaine TP DAILY [facility] Oxycodone/Acetaminophen 1 tab 08/14/21 21:51 Acetaminophen/Oxycodone 325-10 Mg Tab PO QID PRN Pain Discontinued Medications Generic Name Dose Route Start Last Admin Trade Name Freq PRN Reason Stop Dose Admin Albuterol/Ipratropium 9 ml 08/14/21 14:41 08/14/21 14:50 Albuterol/Ipratropium 3.0-0.5 Mg/3 Ml Neb Soln NEB 08/14/21 14:42 9 ml ONETIME ONE Administration Sodium Chloride 1,000 mls @ 999 mls/hr 08/14/21 14:40 08/14/21 14:51 Normal Saline IV 08/14/21 15:40 999 mls/hr BOLUS ONE Administration Azithromycin 500 mg/ Sodium 250 mls @ 250 mls/hr 08/14/21 16:00 08/14/21 16:48 Chloride IV 250 mls/hr ONETIME [facility] Administration Cefotaxime Sodium 1,000 mg/ 50 mls @ 100 mls/hr 08/14/21 15:58 08/14/21 17:58 Sodium Chloride IV 08/14/21 15:59 Not Given ONETIME ONE Cefotaxime Sodium 1,000 mg/ 50 mls @ 100 mls/hr 08/14/21 16:45 08/14/21 17:59 Sodium Chloride IV 08/14/21 17:14 Not Given ONETIME ONE Azithromycin 500 mg/ Sodium 250 mls @ 250 mls/hr 08/14/21 16:45 08/14/21 17:59 Chloride IV 08/14/21 17:44 Not Given ONETIME ONE Ceftriaxone Sodium/Dextrose 1 50 mls @ 100 mls/hr 08/14/21 17:25 08/14/21 17:53 gm/ Premix IV 08/14/21 17:54 100 mls/hr ONETIME ONE Administration Sodium Chloride 1,000 mls @ 999 mls/hr 08/14/21 18:30 08/14/21 18:34 Normal Saline IV 08/14/21 19:30 999 mls/hr STAT ONE Administration Iopamidol 100 ml 08/14/21 17:15 08/14/21 17:16 Iopamidol 755 Mg/Ml 500 Ml Multipack Bottle IVPUSH 08/14/21 17:16 100 ml ONETIME STA Administration Methylprednisolone Sodium Succinate 125 mg 08/14/21 14:42 08/14/21 14:50 Methylprednisolone Sodium Succinate 125 Mg/2 Ml Sdv IVPUSH 08/14/21 14:43 125 mg ONETIME ONE Administration Departure - Departure Time of Disposition: 18:41 Disposition: Admitted As Inpatient 65 Clinical Impression: Hypoxia, COPD exacerbation, Community acquired pneumonia, Weakness - Discharge Information Sepsis Event Note (ED) - Evaluation Sepsis Screening Result: No Definite Risk - Focused Exam Vital Signs: Vital Signs Temp Pulse Resp BP Pulse Ox 08/14/21 18:18 127 H 108/61 90 L 08/14/21 17:32 129 H 104/47 L 94 L 08/14/21 17:03 156 H 101/57 L 95 08/14/21 16:30 115 H 97/59 L 93 L 08/14/21 16:17 133 H 109/70 91 L 08/14/21 15:20 92 16 96/63 98 08/14/21 14:01 98.2 F 119 H 20 127/86 96 - My Orders Last 24 Hours: My Active Orders 08/14/21 14:41 RT Aerosol Therapy [RC] ASDIRECTED 08/14/21 15:57 Blood Culture x2 Reflex Set [OM.PC] Stat 08/14/21 16:21 CULTURE BLOOD [BC] Stat 08/14/21 16:41 CULTURE BLOOD [BC] Stat 08/14/21 18:00 CULTURE URINE [MREF] Stat - Assessment/Plan Last 24 Hours: My Active Orders 08/14/21 14:41 RT Aerosol Therapy [RC] ASDIRECTED 08/14/21 15:57 Blood Culture x2 Reflex Set [OM.PC] Stat 08/14/21 16:21 CULTURE BLOOD [BC] Stat 08/14/21 16:41 CULTURE BLOOD [BC] Stat 08/14/21 18:00 CULTURE URINE [MREF] Stat
[2021-08-14] MEDS ORDERED: Azithromycin 500 MG in Sodium Chloride 0.9% 250 ML IV ONE (16:45)
[2021-08-14] MEDS ORDERED: Iopamidol 755 MG/ML 500 ML Multipack Bottle IVPUSH STA (17:15)
[2021-08-14] MEDS ORDERED: cefTRIAXone 1 GM in Premix Bag 1 BAG IV ONE (17:25)
--- NOTE | 2021-08-14 17:34 | PCM.EKG ---
#1 Interpretation EKG Interpretation Comments: EKG done 08/14/2021 at 2:15 PM shows sinus tachycardia heart rate 117 CO 117 QT duration [address] changes consistent with possible ischemia compared to 10/07/2016 no change impression no acute ischemia #2 Interpretation EKG Interpretation Comments: EKG performed 08/14/2021 at 5:22 PM shows sinus tachycardia with a regular rhythm, heart rate 135, CO 131, QT duration 410, axis 70, ST changes consistent with possible ischemia diffusely. When compared to EKG done at 2:15 PM today there is no significant change impression no acute injury
--- NOTE | 2021-08-14 18:20 | CT ---
INDICATION: Shortness of breath, hypoxia. COMPARISON: Chest radiograph 08/14/2021. CT chest 04/24/2020. TECHNIQUE: CT of the chest with 100 cc of Isovue 370 IV contrast. Coronal and sagittal reconstructions. 3D post processing was performed. FINDINGS: Normal heart size. Normal caliber thoracic aorta and central pulmonary arteries. Coronary artery and aortic vascular calcifications. Negative for acute pulmonary embolism. Trace pericardial fluid anteriorly. No thoracic lymphadenopathy. Moderate to advanced upper lung predominant emphysema. There are mild patchy and reticular ground-glass opacities in the posterior right and left upper lobes along the fissures and within the base of the left lower lobe. Findings are likely infectious or inflammatory. No pleural effusion or pneumothorax. No suspicious pulmonary nodules identified. There is prominent central bronchial wall thickening and scattered mucous plugging. The thyroid gland is normal in appearance. Lobulated contour of the spleen similar to prior exam. The visualized upper abdomen is otherwise unremarkable. Mild degenerative changes of the spine. Partially visualized cervical thoracic fusion hardware. Old bilateral rib fractures. IMPRESSION: 1. Negative for acute pulmonary embolism. 2. Moderate to advanced emphysema. 3. Mild patchy and reticular ground-glass opacities in the posterior upper lobes and base of the left lower lobe are likely infectious or inflammatory. There is also prominent central bronchial wall thickening suggesting bronchitis. Please note that all CT scans at this facility use dose modulation, iterative reconstruction, and/or weight-based dosing when appropriate to reduce radiation dose to as low as reasonably achievable. Dictated by Mercedes Duarte MD @ 08/14/2021 6:19:28 PM (Electronically Signed)
[2021-08-14] MEDS ORDERED: Baclofen 10 MG Tab PO PRN (21:51)
[2021-08-14] MEDS: methylPREDNISolone Sodium Succinate 40 MG/1 ML SDV IVPUSH SCH (22:20)
[2021-08-14] MEDS: Enoxaparin 40 MG/0.4 ML Syringe SUBCUT SCH (22:20)
--- NOTE | 2021-08-14 22:31 | PCM.HP.2 ---
H&P History of Present Illness - General Date of Service: 08/14/21 Admit Problem/Dx: Admission Diagnosis/Problem Admission Diagnosis/Problem Hypoxia - History of Present Illness Initial Comments - Free Text/Narative: 55 yo female with pmh of COPD and chronic back pain who presents to the ED with complaint of generalized weakness. Over the past several weeks patient has reported progressive shortness of breath and productive cough. She stopped smoking as she was unable to ambulate outside her house. She reports it has gotten to the point were she is unable to walk more than a few feet without having her legs give out on her. In the ED she was noted to desat after ambulating and became tachycardic with HR in the 130s. She did have wheezing noted on exam. She was given Rocephin, azithromycin and solumedrol in the ED. general Pain Score (Numeric/FACES): 7 - Related Data Allergies/Adverse Reactions: Allergies Allergy/AdvReac Type Severity Reaction Status Date / Time No Known Allergies Allergy Verified 08/14/21 14:01 Home Medications: Home Meds Baclofen [Lioresal] 1 - 2 tab PO TID PRN 10/07/16 [History] amLODIPine [Norvasc] 1 tab PO DAILY 10/07/16 [History] oxyCODONE HCl/Acetaminophen [Percocet 10-325 mg Tablet] 1 tab PO QID PRN 10/07/16 [History] Docusate Sodium [Stool Softener] 50 mg PO DAILY 04/24/20 [History] Lidocaine 1 each TP DAILY 04/24/20 [History] Potassium Citrate [Potassium Citrate ER] 5 meq PO DAILY 04/24/20 [History] fentaNYL [Duragesic] 1 patch TD Q72H 04/24/20 [History] Past Medical History - Past Health History Medical/Surgical History: Denies Medical/Surgical History HEENT History: Reports: Impaired Vision Cardiovascular History: Reports: Hypertension Respiratory History: Reports: Pneumonia, Recurrent Other Respiratory History: Pneumonia Gastrointestinal History: Reports: None Genitourinary History: Reports: None [employer] History: Reports: Musculoskeletal History: Reports: Back Pain, Chronic, Neck Pain, Chronic Other Musculoskeletal History: chronic neck pain Neurological History: Reports: None Psychiatric History: Reports: None Endocrine/Metabolic History: Reports: None Hematologic History: Reports: None Immunologic History: Reports: None Oncologic (Cancer) History: Reports: None Dermatologic History: Reports: None - Infectious Disease History Infectious Disease History: Reports: None - Past Surgical History Head Surgeries/Procedures: Reports: None HEENT Surgical History: Reports: None Cardiovascular Surgical History: Reports: None GI Surgical History: Reports: Cholecystectomy Female Surgical History: Reports: Section Endocrine Surgical History: Reports: None Neurological Surgical History: Reports: C-Spine, Spinal Fusion, Thoracic Spine Musculoskeletal Surgical History: Reports: Other (See Below) Other Musculoskeletal Surgeries/Procedures:: Neck sugery Oncologic Surgical History: Reports: None Dermatological Surgical History: Reports: None Social & Family History - Family History Family Medical History: No Pertinent Family History - Caffeine Use Caffeine Use: Reports: Coffee Caffeine Use Comment: 2-3cups/day H&P Review of Systems - Review of Systems: Review Of Systems: Comprehensive ROS is negative, except as noted in HPI. Exam - Exam Exam: See Below - Vital Signs Vital Signs: Last Vital Signs Temp 36.8 C 08/14/21 14:01 Pulse 103 H 08/14/21 20:02 Resp 20 08/14/21 20:02 BP 90/50 L 08/14/21 20:02 Pulse Ox 96 08/14/21 20:02 Weight: 51.846 kg - Exam General: Alert, Oriented HEENT: Mucosa Moist & [place] Neck: Supple Lungs: Normal Respiratory Effort, Wheezing Cardiovascular: Regular Rate, Regular Rhythm GI/Abdominal Exam: Normal Bowel Sounds, Soft, Non-Tender Extremities: Non-Tender, No Pedal Edema Skin: Warm, Dry, Intact Neurological: No: Focal Deficit - Patient Data Lab Results Last 24 hrs: Laboratory Results - last 24 hr 08/14/21 08/14/21 08/14/21 Range/Units 14:50 15:13 15:13 WBC 13.40 H (4.0-11.0) K/uL RBC 4.83 (4.30-5.90) M/uL Hgb 16.3 H (12.0-16.0) g/dL Hct 45.1 (36.0-46.0) % MCV 93.4 (80.0-98.0) fL MCH 33.7 H (27.0-32.0) pg MCHC 36.1 (31.0-37.0) g/dL RDW Std Deviation 43.3 (28.0-62.0) fl RDW Coeff of Carrie 13 (11.0-15.0) % Plt Count 294 (150-400) K/uL MPV 10.20 (7.40-12.00) fL Neut % (Auto) 73.4 (48.0-80.0) % Lymph % (Auto) 15.5 L (16.0-40.0) % [place] % (Auto) 10.2 (0.0-15.0) % Eos % (Auto) 0.8 (0.0-7.0) % Baso % (Auto) 0.1 (0.0-1.5) % Neut # (Auto) 9.8 H (1.4-5.7) K/uL Lymph # (Auto) 2.1 (0.6-2.4) K/uL [place] # (Auto) 1.4 H (0.0-0.8) K/uL Eos # (Auto) 0.1 (0.0-0.7) K/uL Baso # (Auto) 0.0 (0.0-0.1) K/uL Nucleated RBC % 0.0 /100WBC Nucleated RBCs # 0 K/uL D-Dimer, Quantitative (0.0-0.50) mg/L FEU Sodium 135 L (136-145) mmol/L Potassium 3.5 (3.5-5.1) mmol/L Chloride 94 L (98-107) mmol/L Carbon Dioxide 19.0 L (21.0-32.0) mmol/L BUN 16 (7.0-18.0) mg/dL Creatinine 0.7 (0.6-1.0) mg/dL Est Cr Clr Drug Dosing 74.23 mL/min Estimated GFR (MDRD) > 60.0 ml/min Glucose 73 L (74-106) mg/dL Lactic Acid (0.4-2.0) mmol/L Calcium 9.5 (8.5-10.1) mg/dL Total Bilirubin 0.5 (0.2-1.0) mg/dL AST 31 (15-37) IU/L ALT 27 (14-63) IU/L Alkaline Phosphatase 126 H (46-116) U/L Troponin I < 0.050 (0.000-0.056) ng/mL Total Protein 8.0 (6.4-8.2) g/dL Albumin 3.6 (3.4-5.0) g/dL Globulin 4.4 H (2.6-4.0) g/dL Albumin/Globulin Ratio 0.8 L (0.9-1.6) Lipase 271 (73-393) U/L Urine Color Urine Appearance Urine pH (5.0-8.0) Ur Specific [place] (1.001-1.035) Urine Protein (NEGATIVE) mg/dL Urine Glucose (UA) (NEGATIVE) mg/dL Urine Ketones (NEGATIVE) mg/dL Urine Occult Blood (NEGATIVE) Urine Nitrite (NEGATIVE) Urine Bilirubin (NEGATIVE) Urine Urobilinogen (<2.0) EU/dL Ur Leukocyte Esterase (NEGATIVE) Urine RBC (0-2/HPF) Urine WBC (0-5/HPF) Ur Epithelial Cells (NONE-FEW) Urine Bacteria (NEGATIVE) Influenza Type A RNA NEGATIVE (NEGATIVE) Influenza Type B RNA NEGATIVE (NEGATIVE) SARS-CoV-2 RNA (CLAY) NEGATIVE (NEGATIVE) 08/14/21 08/14/21 08/14/21 Range/Units 15:46 15:46 18:00 WBC (4.0-11.0) K/uL RBC (4.30-5.90) M/uL Hgb (12.0-16.0) g/dL Hct (36.0-46.0) % MCV (80.0-98.0) fL MCH (27.0-32.0) pg MCHC (31.0-37.0) g/dL RDW Std Deviation (28.0-62.0) fl RDW Coeff of Carrie (11.0-15.0) % Plt Count (150-400) K/uL MPV (7.40-12.00) fL Neut % (Auto) (48.0-80.0) % Lymph % (Auto) (16.0-40.0) % [place] % (Auto) (0.0-15.0) % Eos % (Auto) (0.0-7.0) % Baso % (Auto) (0.0-1.5) % Neut # (Auto) (1.4-5.7) K/uL Lymph # (Auto) (0.6-2.4) K/uL [place] # (Auto) (0.0-0.8) K/uL Eos # (Auto) (0.0-0.7) K/uL Baso # (Auto) (0.0-0.1) K/uL Nucleated RBC % /100WBC Nucleated RBCs # K/uL D-Dimer, Quantitative 0.60 H (0.0-0.50) mg/L FEU Sodium (136-145) mmol/L Potassium (3.5-5.1) mmol/L Chloride (98-107) mmol/L Carbon Dioxide (21.0-32.0) mmol/L BUN (7.0-18.0) mg/dL Creatinine (0.6-1.0) mg/dL Est Cr Clr Drug Dosing mL/min Estimated GFR (MDRD) ml/min Glucose (74-106) mg/dL Lactic Acid 2.0 (0.4-2.0) mmol/L Calcium (8.5-10.1) mg/dL Total Bilirubin (0.2-1.0) mg/dL AST (15-37) IU/L ALT (14-63) IU/L Alkaline Phosphatase (46-116) U/L Troponin I (0.000-0.056) ng/mL Total Protein (6.4-8.2) g/dL Albumin (3.4-5.0) g/dL Globulin (2.6-4.0) g/dL Albumin/Globulin Ratio (0.9-1.6) Lipase (73-393) U/L Urine Color YELLOW Urine Appearance SLT CLOUDY Urine pH 5.5 (5.0-8.0) Ur Specific [place] 1.010 (1.001-1.035) Urine Protein TRACE H (NEGATIVE) mg/dL Urine Glucose (UA) NEGATIVE (NEGATIVE) mg/dL Urine Ketones 40 H (NEGATIVE) mg/dL Urine Occult Blood MODERATE H (NEGATIVE) Urine Nitrite NEGATIVE (NEGATIVE) Urine Bilirubin SMALL H (NEGATIVE) Urine Urobilinogen 0.2 (<2.0) EU/dL Ur Leukocyte Esterase SMALL H (NEGATIVE) Urine RBC 0-2 (0-2/HPF) Urine WBC 0-2 (0-5/HPF) Ur Epithelial Cells OCCASIONAL (NONE-FEW) Urine Bacteria FEW (NEGATIVE) Influenza Type A RNA (NEGATIVE) Influenza Type B RNA (NEGATIVE) SARS-CoV-2 RNA (CLAY) (NEGATIVE) Result Diagrams: 08/15/21 05:25 08/15/21 05:25 William Results Last 24 hrs: Microbiology 08/14/21 16:21 Anaerobic Blood Culture - Final Blood - Venous Sepsis Event Note - Evaluation Sepsis Screening Result: No Definite Risk - Focused Exam Vital Signs: Vital Signs Temp Pulse Resp BP Pulse Ox 08/14/21 20:02 103 H 20 90/50 L 96 08/14/21 19:05 124 H 92/68 97 08/14/21 18:18 127 H 108/61 90 L 08/14/21 17:32 129 H 104/47 L 94 L 08/14/21 17:03 156 H 101/57 L 95 08/14/21 16:30 115 H 97/59 L 93 L 08/14/21 16:17 133 H 109/70 91 L 08/14/21 15:20 92 16 96/63 98 08/14/21 14:01 36.8 C 119 H 20 127/86 96 - Problem List (1) COPD exacerbation SNOMED Code(s): 360672569 ICD Code: J44.1 - CHRONIC OBSTRUCTIVE PULMONARY DISEASE W (ACUTE) EXACERBATION Status: Acute Current Visit: Yes (2) Community acquired pneumonia SNOMED Code(s): 666718552 ICD Code: J18.9 - PNEUMONIA, UNSPECIFIED ORGANISM Status: Acute Current Visit: Yes Problem List Initiated/Reviewed/Updated: Yes Orders Last 24hrs: Active Orders 24 hr Category Date Time Status Admission Status [Patient Status] [ADT] Stat ADT 08/14/21 18:35 Active Antiembolic Devices [RC] PER UNIT ROUTINE Care 08/14/21 22:12 Ordered Oxygen Therapy [RC] PRN Care 08/14/21 21:57 Ordered RT Aerosol Therapy [RC] ASDIRECTED Care 08/14/21 14:41 Active Telemetry Monitoring [Cardiac Monitoring] [RC] Q8H Care 08/14/21 19:02 Active Up ad Kimberlyn [RC] ASDIRECTED Care 08/14/21 21:57 Ordered VTE/DVT Education [RC] PER UNIT ROUTINE Care 08/14/21 21:57 Ordered Vital Signs [RC] Q4H Care 08/14/21 21:57 Ordered PT Evaluation and Treatment [CONS] Routine Cons 08/14/21 22:08 Ordered Regular Diet [DIET] Diet 08/14/21 Breakfast Ordered CBC WITH AUTO DIFF [HEME] AM Lab 08/15/21 05:11 Ordered COMPREHENSIVE METABOLIC PN,CMP [CHEM] AM Lab 08/15/21 05:11 Ordered CULTURE BLOOD [BC] Stat Lab 08/14/21 16:21 Results CULTURE BLOOD [BC] Stat Lab 08/14/21 16:41 Received CULTURE URINE [MREF] Stat Lab 08/14/21 18:00 Received Acetaminophen/oxyCODONE [Percocet 325-10 MG] Med 08/14/21 21:51 Ordered 1 tab PO QID PRN Azithromycin [Zithromax] Med 08/15/21 16:00 Active 500 mg IV Q24H Baclofen [Lioresal] Med 08/14/21 21:51 Ordered 10 mg PO TID PRN Docusate Sodium [Stool Softener] Med 08/15/21 09:00 Ordered 50 mg PO DAILY Enoxaparin [Lovenox] Med 08/14/21 22:00 Ordered 40 mg SUBCUT Q24H Lidocaine Med 08/15/21 09:00 Ordered 1 each TP DAILY cefTRIAXone [Rocephin in Dextrose,Iso-Osm 1 GM/50 ML] 1 Med 08/15/21 16:00 Active gm Premix Bag 1 bag IV Q24H fentaNYL [Duragesic] Med 08/14/21 22:00 Ordered 1 patch TRDERM Q72H methylPREDNISolone Sod Succ [Solu-MEDROL] Med 08/14/21 22:00 Ordered 40 mg IVPUSH Q8H Blood Culture x2 Reflex Set [OM.PC] Stat Oth 08/14/21 15:57 Ordered Sequential Compression Device [OM.PC] Per Unit Routine Oth 08/14/21 21:58 Ordered Resuscitation Status Routine Resus Stat 08/14/21 21:57 Ordered Medication Orders Azithromycin (Azithromycin 500 Mg Vial) 500 mg IV Q24H ESPERANZA Baclofen (Baclofen 10 Mg Tab) 10 mg PO TID PRN PRN Reason: Pain Fentanyl (Fentanyl 100 Mcg/Hr Transdermal Patch) mcg TRDERM Q72H ESPERANZA Ceftriaxone Sodium/Dextrose 1 (gm/ Premix) 50 mls @ 100 mls/hr IV Q24H ESPERANZA Methylprednisolone Sodium Succinate (Methylprednisolone Sodium Succinate 40 Mg/1 Ml Sdv) 40 mg IVPUSH Q8H ESPERANZA Non-Formulary Medication (Docusate Sodium [Stool Softener]) 50 mg PO DAILY ESPERANZA Non-Formulary Medication (Lidocaine) 1 each TP DAILY ESPERANZA Oxycodone/Acetaminophen (Acetaminophen/Oxycodone 325-10 Mg Tab) 1 tab PO QID PRN PRN Reason: Pain Assessment/Plan Comment:: 55 yo female admitted for community acquired pneumonia and COPD. We will treat with Rocephin, azithromycin, solumedrol and duonebs.
[2021-08-14] MEDS: Albuterol/Ipratropium 3.0-0.5 MG/3 ML Neb Soln NEB SCH (23:40)
[2021-08-15] MEDS: Acetaminophen/oxyCODONE 325-10 MG Tab PO PRN ×4 (02:55→20:41)
[2021-08-15] MEDS: methylPREDNISolone Sodium Succinate 40 MG/1 ML SDV IVPUSH SCH ×3 (05:56→21:17)
[2021-08-15] MEDS: Albuterol/Ipratropium 3.0-0.5 MG/3 ML Neb Soln NEB SCH ×4 (05:56→23:26)
[2021-08-15 06:59] LABS: BLOOD UREA NITROGEN,BUN 8 mg/dL (7.0-18.0); CARBON DIOXIDE,CO2 17.6 mmol/L (21.0-32.0); CHLORIDE,CL 99 mmol/L (98-107); GLUCOSE RANDOM 143 mg/dL (74-106); POTASSIUM,K 3.1 mmol/L (3.5-5.1); SODIUM,NA 133 mmol/L (136-145)
[2021-08-15] MEDS: Docusate Sodium Liquid 100 MG/10 ML UD Cup PO SCH (08:14)
[2021-08-15] MEDS ORDERED: LIDOCAINE TOP SCH (09:00)
[2021-08-15] MEDS ORDERED: Lidocaine 5% 700 MG Patch TOP SCH (11:00)
[2021-08-15] MEDS: Lidocaine 5% 700 MG Patch TOP SCH (11:06)
[2021-08-15] MEDS ORDERED: Potassium Chloride 20 MEQ Tab.ER PO ONE (11:57)
--- NOTE | 2021-08-15 11:59 | PCM.PN ---
- General Info Date of Service: 08/15/21 - Review of Systems Systems Review Comment:: feeling stronger today, able to walk a few feet, shortness of breath and wheezing improved - Patient Data Vitals - Most Recent: Last Vital Signs Temp 36.1 C 08/15/21 08:09 Pulse 99 08/15/21 08:09 Resp 18 08/15/21 08:09 BP 98/56 L 08/15/21 08:09 Pulse Ox 95 08/15/21 08:09 Weight - Most Recent: 51.846 kg I&O - Last 24 Hours: Intake & Output 08/14/21 08/15/21 08/15/21 22:59 06:59 14:59 Output Total 300 Balance -300 Lab Results Last 24 Hours: Laboratory Results - last 24 hr 08/14/21 08/14/21 08/14/21 Range/Units 14:50 15:13 15:13 WBC 13.40 H (4.0-11.0) K/uL RBC 4.83 (4.30-5.90) M/uL Hgb 16.3 H (12.0-16.0) g/dL Hct 45.1 (36.0-46.0) % MCV 93.4 (80.0-98.0) fL MCH 33.7 H (27.0-32.0) pg MCHC 36.1 (31.0-37.0) g/dL RDW Std Deviation 43.3 (28.0-62.0) fl RDW Coeff of Carrie 13 (11.0-15.0) % Plt Count 294 (150-400) K/uL MPV 10.20 (7.40-12.00) fL Neut % (Auto) 73.4 (48.0-80.0) % Lymph % (Auto) 15.5 L (16.0-40.0) % Coke % (Auto) 10.2 (0.0-15.0) % Eos % (Auto) 0.8 (0.0-7.0) % Baso % (Auto) 0.1 (0.0-1.5) % Neut # (Auto) 9.8 H (1.4-5.7) K/uL Lymph # (Auto) 2.1 (0.6-2.4) K/uL Coke # (Auto) 1.4 H (0.0-0.8) K/uL Eos # (Auto) 0.1 (0.0-0.7) K/uL Baso # (Auto) 0.0 (0.0-0.1) K/uL Nucleated RBC % 0.0 /100WBC Nucleated RBCs # 0 K/uL D-Dimer, Quantitative (0.0-0.50) mg/L FEU Sodium 135 L (136-145) mmol/L Potassium 3.5 (3.5-5.1) mmol/L Chloride 94 L (98-107) mmol/L Carbon Dioxide 19.0 L (21.0-32.0) mmol/L BUN 16 (7.0-18.0) mg/dL Creatinine 0.7 (0.6-1.0) mg/dL Est Cr Clr Drug Dosing 74.23 mL/min Estimated GFR (MDRD) > 60.0 ml/min Glucose 73 L (74-106) mg/dL Lactic Acid (0.4-2.0) mmol/L Calcium 9.5 (8.5-10.1) mg/dL Total Bilirubin 0.5 (0.2-1.0) mg/dL AST 31 (15-37) IU/L ALT 27 (14-63) IU/L Alkaline Phosphatase 126 H (46-116) U/L Troponin I < 0.050 (0.000-0.056) ng/mL Total Protein 8.0 (6.4-8.2) g/dL Albumin 3.6 (3.4-5.0) g/dL Globulin 4.4 H (2.6-4.0) g/dL Albumin/Globulin Ratio 0.8 L (0.9-1.6) Lipase 271 (73-393) U/L Urine Color Urine Appearance Urine pH (5.0-8.0) Ur Specific [place] (1.001-1.035) Urine Protein (NEGATIVE) mg/dL Urine Glucose (UA) (NEGATIVE) mg/dL Urine Ketones (NEGATIVE) mg/dL Urine Occult Blood (NEGATIVE) Urine Nitrite (NEGATIVE) Urine Bilirubin (NEGATIVE) Urine Urobilinogen (<2.0) EU/dL Ur Leukocyte Esterase (NEGATIVE) Urine RBC (0-2/HPF) Urine WBC (0-5/HPF) Ur Epithelial Cells (NONE-FEW) Urine Bacteria (NEGATIVE) Influenza Type A RNA NEGATIVE (NEGATIVE) Influenza Type B RNA NEGATIVE (NEGATIVE) SARS-CoV-2 RNA (CLAY) NEGATIVE (NEGATIVE) 08/14/21 08/14/21 08/14/21 Range/Units 15:46 15:46 18:00 WBC (4.0-11.0) K/uL RBC (4.30-5.90) M/uL Hgb (12.0-16.0) g/dL Hct (36.0-46.0) % MCV (80.0-98.0) fL MCH (27.0-32.0) pg MCHC (31.0-37.0) g/dL RDW Std Deviation (28.0-62.0) fl RDW Coeff of Carrie (11.0-15.0) % Plt Count (150-400) K/uL MPV (7.40-12.00) fL Neut % (Auto) (48.0-80.0) % Lymph % (Auto) (16.0-40.0) % Coke % (Auto) (0.0-15.0) % Eos % (Auto) (0.0-7.0) % Baso % (Auto) (0.0-1.5) % Neut # (Auto) (1.4-5.7) K/uL Lymph # (Auto) (0.6-2.4) K/uL Coke # (Auto) (0.0-0.8) K/uL Eos # (Auto) (0.0-0.7) K/uL Baso # (Auto) (0.0-0.1) K/uL Nucleated RBC % /100WBC Nucleated RBCs # K/uL D-Dimer, Quantitative 0.60 H (0.0-0.50) mg/L FEU Sodium (136-145) mmol/L Potassium (3.5-5.1) mmol/L Chloride (98-107) mmol/L Carbon Dioxide (21.0-32.0) mmol/L BUN (7.0-18.0) mg/dL Creatinine (0.6-1.0) mg/dL Est Cr Clr Drug Dosing mL/min Estimated GFR (MDRD) ml/min Glucose (74-106) mg/dL Lactic Acid 2.0 (0.4-2.0) mmol/L Calcium (8.5-10.1) mg/dL Total Bilirubin (0.2-1.0) mg/dL AST (15-37) IU/L ALT (14-63) IU/L Alkaline Phosphatase (46-116) U/L Troponin I (0.000-0.056) ng/mL Total Protein (6.4-8.2) g/dL Albumin (3.4-5.0) g/dL Globulin (2.6-4.0) g/dL Albumin/Globulin Ratio (0.9-1.6) Lipase (73-393) U/L Urine Color YELLOW Urine Appearance SLT CLOUDY Urine pH 5.5 (5.0-8.0) Ur Specific [place] 1.010 (1.001-1.035) Urine Protein TRACE H (NEGATIVE) mg/dL Urine Glucose (UA) NEGATIVE (NEGATIVE) mg/dL Urine Ketones 40 H (NEGATIVE) mg/dL Urine Occult Blood MODERATE H (NEGATIVE) Urine Nitrite NEGATIVE (NEGATIVE) Urine Bilirubin SMALL H (NEGATIVE) Urine Urobilinogen 0.2 (<2.0) EU/dL Ur Leukocyte Esterase SMALL H (NEGATIVE) Urine RBC 0-2 (0-2/HPF) Urine WBC 0-2 (0-5/HPF) Ur Epithelial Cells OCCASIONAL (NONE-FEW) Urine Bacteria FEW (NEGATIVE) Influenza Type A RNA (NEGATIVE) Influenza Type B RNA (NEGATIVE) SARS-CoV-2 RNA (CLAY) (NEGATIVE) 08/15/21 08/15/21 Range/Units 05:25 05:25 WBC 7.48 (4.0-11.0) K/uL RBC 3.61 L (4.30-5.90) M/uL Hgb 11.8 L (12.0-16.0) g/dL Hct 33.8 L (36.0-46.0) % MCV 93.6 (80.0-98.0) fL MCH 32.7 H (27.0-32.0) pg MCHC 34.9 (31.0-37.0) g/dL RDW Std Deviation 43.8 (28.0-62.0) fl RDW Coeff of Carrie 13 (11.0-15.0) % Plt Count 267 (150-400) K/uL MPV 10.50 (7.40-12.00) fL Neut % (Auto) 86.1 H (48.0-80.0) % Lymph % (Auto) 12.8 L (16.0-40.0) % Coke % (Auto) 1.1 (0.0-15.0) % Eos % (Auto) 0.0 (0.0-7.0) % Baso % (Auto) 0.0 (0.0-1.5) % Neut # (Auto) 6.4 H (1.4-5.7) K/uL Lymph # (Auto) 1.0 (0.6-2.4) K/uL Coke # (Auto) 0.1 (0.0-0.8) K/uL Eos # (Auto) 0.0 (0.0-0.7) K/uL Baso # (Auto) 0.0 (0.0-0.1) K/uL Nucleated RBC % 0.0 /100WBC Nucleated RBCs # 0 K/uL D-Dimer, Quantitative (0.0-0.50) mg/L FEU Sodium 133 L (136-145) mmol/L Potassium 3.1 L (3.5-5.1) mmol/L Chloride 99 (98-107) mmol/L Carbon Dioxide 17.6 L (21.0-32.0) mmol/L BUN 8 (7.0-18.0) mg/dL Creatinine 0.6 (0.6-1.0) mg/dL Est Cr Clr Drug Dosing 85.69 mL/min Estimated GFR (MDRD) > 60.0 ml/min Glucose 143 H (74-106) mg/dL Lactic Acid (0.4-2.0) mmol/L Calcium 8.3 L (8.5-10.1) mg/dL Total Bilirubin 0.2 (0.2-1.0) mg/dL AST 25 (15-37) IU/L ALT 14 (14-63) IU/L Alkaline Phosphatase 95 (46-116) U/L Troponin I (0.000-0.056) ng/mL Total Protein 6.8 (6.4-8.2) g/dL Albumin 2.6 L (3.4-5.0) g/dL Globulin 4.2 H (2.6-4.0) g/dL Albumin/Globulin Ratio 0.6 L (0.9-1.6) Lipase (73-393) U/L Urine Color Urine Appearance Urine pH (5.0-8.0) Ur Specific [place] (1.001-1.035) Urine Protein (NEGATIVE) mg/dL Urine Glucose (UA) (NEGATIVE) mg/dL Urine Ketones (NEGATIVE) mg/dL Urine Occult Blood (NEGATIVE) Urine Nitrite (NEGATIVE) Urine Bilirubin (NEGATIVE) Urine Urobilinogen (<2.0) EU/dL Ur Leukocyte Esterase (NEGATIVE) Urine RBC (0-2/HPF) Urine WBC (0-5/HPF) Ur Epithelial Cells (NONE-FEW) Urine Bacteria (NEGATIVE) Influenza Type A RNA (NEGATIVE) Influenza Type B RNA (NEGATIVE) SARS-CoV-2 RNA (CLAY) (NEGATIVE) William Results Last 24 Hours: Microbiology 08/14/21 16:21 Anaerobic Blood Culture - Final Blood - Venous Med Orders - Current: Current Medications Albuterol/Ipratropium (Albuterol/Ipratropium 3.0-0.5 Mg/3 Ml Neb Soln) 3 ml NEB Q6HRRT [facility] Last Admin: 08/15/21 05:56 Dose: 3 ml Documented by: Azithromycin (Azithromycin 500 Mg Vial) 500 mg IV Q24H [facility] Baclofen (Baclofen 10 Mg Tab) 10 mg PO TID PRN PRN Reason: Pain Docusate Sodium (Docusate Sodium Liquid 100 Mg/10 Ml Ud Cup) 50 mg PO DAILY [facility] Last Admin: 08/15/21 08:14 Dose: 50 mg Documented by: Enoxaparin Sodium (Enoxaparin 40 Mg/0.4 Ml Syringe) 40 mg SUBCUT Q24H [facility] Last Admin: 08/14/21 22:20 Dose: 40 mg Documented by: Fentanyl (Fentanyl 100 Mcg/Hr Transdermal Patch) mcg TRDERM Q72H [facility] Ceftriaxone Sodium/Dextrose 1 (gm/ Premix) 50 mls @ 100 mls/hr IV Q24H [facility] Lidocaine (Lidocaine 5% 700 Mg Patch) 700 mg TRDERM Q24H [facility] Lidocaine (Lidocaine 5% 700 Mg Patch) 700 mg TOP Q24H [facility] Last Admin: 08/15/21 11:06 Dose: 700 mg Documented by: Methylprednisolone Sodium Succinate (Methylprednisolone Sodium Succinate 40 Mg/1 Ml Sdv) 40 mg IVPUSH Q8H [facility] Last Admin: 08/15/21 05:56 Dose: 40 mg Documented by: Oxycodone/Acetaminophen (Acetaminophen/Oxycodone 325-10 Mg Tab) 1 tab PO QID PRN PRN Reason: Pain Last Admin: 08/15/21 08:14 Dose: 1 tab Documented by: Discontinued Medications Albuterol/Ipratropium (Albuterol/Ipratropium 3.0-0.5 Mg/3 Ml Neb Soln) 9 ml NEB ONETIME ONE Stop: 08/14/21 14:42 Last Admin: 08/14/21 14:50 Dose: 9 ml Documented by: Sodium Chloride (Normal Saline) 1,000 mls @ 999 mls/hr IV BOLUS ONE Stop: 08/14/21 15:40 Last Admin: 08/14/21 14:51 Dose: 999 mls/hr Documented by: Azithromycin 500 mg/ Sodium (Chloride) 250 mls @ 250 mls/hr IV ONETIME [facility] Last Admin: 08/14/21 16:48 Dose: 250 mls/hr Documented by: Cefotaxime Sodium 1,000 mg/ (Sodium Chloride) 50 mls @ 100 mls/hr IV ONETIME ONE Stop: 08/14/21 15:59 Last Admin: 08/14/21 17:58 Dose: Not Given Documented by: Cefotaxime Sodium 1,000 mg/ (Sodium Chloride) 50 mls @ 100 mls/hr IV ONETIME ONE Stop: 08/14/21 17:14 Last Admin: 08/14/21 17:59 Dose: Not Given Documented by: Azithromycin 500 mg/ Sodium (Chloride) 250 mls @ 250 mls/hr IV ONETIME ONE Stop: 08/14/21 17:44 Last Admin: 08/14/21 17:59 Dose: Not Given Documented by: Ceftriaxone Sodium/Dextrose 1 (gm/ Premix) 50 mls @ 100 mls/hr IV ONETIME ONE Stop: 08/14/21 17:54 Last Admin: 08/14/21 17:53 Dose: 100 mls/hr Documented by: Sodium Chloride (Normal Saline) 1,000 mls @ 999 mls/hr IV STAT ONE Stop: 08/14/21 19:30 Last Admin: 08/14/21 18:34 Dose: 999 mls/hr Documented by: Iopamidol (Iopamidol 755 Mg/Ml 500 Ml Multipack Bottle) 100 ml IVPUSH ONETIME STA Stop: 08/14/21 17:16 Last Admin: 08/14/21 17:16 Dose: 100 ml Documented by: Lidocaine (Lidocaine 5% 700 Mg Patch) 700 mg TOP DAILY [facility] Methylprednisolone Sodium Succinate (Methylprednisolone Sodium Succinate 125 Mg/2 Ml Sdv) 125 mg IVPUSH ONETIME ONE Stop: 08/14/21 14:43 Last Admin: 08/14/21 14:50 Dose: 125 mg Documented by: Non-Formulary Medication (Lidocaine) 1 each TOP DAILY [facility] Last Admin: 08/15/21 11:05 Dose: Not Given Documented by: - Exam General: Alert, Oriented Neck: Supple Lungs: Normal Respiratory Effort, Wheezing Cardiovascular: Regular Rate, Regular Rhythm GI/Abdominal Exam: Soft, Non-Tender, No Distention Extremities: Non-Tender, No Pedal Edema Skin: Warm, Dry, Intact Neurological: No New Focal Deficit - Patient Data Lab Results Last 24 hrs: Laboratory Results - last 24 hr 08/14/21 08/14/21 08/14/21 Range/Units 14:50 15:13 15:13 WBC 13.40 H (4.0-11.0) K/uL RBC 4.83 (4.30-5.90) M/uL Hgb 16.3 H (12.0-16.0) g/dL Hct 45.1 (36.0-46.0) % MCV 93.4 (80.0-98.0) fL MCH 33.7 H (27.0-32.0) pg MCHC 36.1 (31.0-37.0) g/dL RDW Std Deviation 43.3 (28.0-62.0) fl RDW Coeff of Carrie 13 (11.0-15.0) % Plt Count 294 (150-400) K/uL MPV 10.20 (7.40-12.00) fL Neut % (Auto) 73.4 (48.0-80.0) % Lymph % (Auto) 15.5 L (16.0-40.0) % Coke % (Auto) 10.2 (0.0-15.0) % Eos % (Auto) 0.8 (0.0-7.0) % Baso % (Auto) 0.1 (0.0-1.5) % Neut # (Auto) 9.8 H (1.4-5.7) K/uL Lymph # (Auto) 2.1 (0.6-2.4) K/uL [place]ke # (Auto) 1.4 H (0.0-0.8) K/uL Eos # (Auto) 0.1 (0.0-0.7) K/uL Baso # (Auto) 0.0 (0.0-0.1) K/uL Nucleated RBC % 0.0 /100WBC Nucleated RBCs # 0 K/uL D-Dimer, Quantitative (0.0-0.50) mg/L FEU Sodium 135 L (136-145) mmol/L Potassium 3.5 (3.5-5.1) mmol/L Chloride 94 L (98-107) mmol/L Carbon Dioxide 19.0 L (21.0-32.0) mmol/L BUN 16 (7.0-18.0) mg/dL Creatinine 0.7 (0.6-1.0) mg/dL Est Cr Clr Drug Dosing 74.23 mL/min Estimated GFR (MDRD) > 60.0 ml/min Glucose 73 L (74-106) mg/dL Lactic Acid (0.4-2.0) mmol/L Calcium 9.5 (8.5-10.1) mg/dL Total Bilirubin 0.5 (0.2-1.0) mg/dL AST 31 (15-37) IU/L ALT 27 (14-63) IU/L Alkaline Phosphatase 126 H (46-116) U/L Troponin I < 0.050 (0.000-0.056) ng/mL Total Protein 8.0 (6.4-8.2) g/dL Albumin 3.6 (3.4-5.0) g/dL Globulin 4.4 H (2.6-4.0) g/dL Albumin/Globulin Ratio 0.8 L (0.9-1.6) Lipase 271 (73-393) U/L Urine Color Urine Appearance Urine pH (5.0-8.0) Ur Specific [place] (1.001-1.035) Urine Protein (NEGATIVE) mg/dL Urine Glucose (UA) (NEGATIVE) mg/dL Urine Ketones (NEGATIVE) mg/dL Urine Occult Blood (NEGATIVE) Urine Nitrite (NEGATIVE) Urine Bilirubin (NEGATIVE) Urine Urobilinogen (<2.0) EU/dL Ur Leukocyte Esterase (NEGATIVE) Urine RBC (0-2/HPF) Urine WBC (0-5/HPF) Ur Epithelial Cells (NONE-FEW) Urine Bacteria (NEGATIVE) Influenza Type A RNA NEGATIVE (NEGATIVE) Influenza Type B RNA NEGATIVE (NEGATIVE) SARS-CoV-2 RNA (CLAY) NEGATIVE (NEGATIVE) 08/14/21 08/14/21 08/14/21 Range/Units 15:46 15:46 18:00 WBC (4.0-11.0) K/uL RBC (4.30-5.90) M/uL Hgb (12.0-16.0) g/dL Hct (36.0-46.0) % MCV (80.0-98.0) fL MCH (27.0-32.0) pg MCHC (31.0-37.0) g/dL RDW Std Deviation (28.0-62.0) fl RDW Coeff of Carrie (11.0-15.0) % Plt Count (150-400) K/uL MPV (7.40-12.00) fL Neut % (Auto) (48.0-80.0) % Lymph % (Auto) (16.0-40.0) % Coke % (Auto) (0.0-15.0) % Eos % (Auto) (0.0-7.0) % Baso % (Auto) (0.0-1.5) % Neut # (Auto) (1.4-5.7) K/uL Lymph # (Auto) (0.6-2.4) K/uL [place]ke # (Auto) (0.0-0.8) K/uL Eos # (Auto) (0.0-0.7) K/uL Baso # (Auto) (0.0-0.1) K/uL Nucleated RBC % /100WBC Nucleated RBCs # K/uL D-Dimer, Quantitative 0.60 H (0.0-0.50) mg/L FEU Sodium (136-145) mmol/L Potassium (3.5-5.1) mmol/L Chloride (98-107) mmol/L Carbon Dioxide (21.0-32.0) mmol/L BUN (7.0-18.0) mg/dL Creatinine (0.6-1.0) mg/dL Est Cr Clr Drug Dosing mL/min Estimated GFR (MDRD) ml/min Glucose (74-106) mg/dL Lactic Acid 2.0 (0.4-2.0) mmol/L Calcium (8.5-10.1) mg/dL Total Bilirubin (0.2-1.0) mg/dL AST (15-37) IU/L ALT (14-63) IU/L Alkaline Phosphatase (46-116) U/L Troponin I (0.000-0.056) ng/mL Total Protein (6.4-8.2) g/dL Albumin (3.4-5.0) g/dL Globulin (2.6-4.0) g/dL Albumin/Globulin Ratio (0.9-1.6) Lipase (73-393) U/L Urine Color YELLOW Urine Appearance SLT CLOUDY Urine pH 5.5 (5.0-8.0) Ur Specific [place] 1.010 (1.001-1.035) Urine Protein TRACE H (NEGATIVE) mg/dL Urine Glucose (UA) NEGATIVE (NEGATIVE) mg/dL Urine Ketones 40 H (NEGATIVE) mg/dL Urine Occult Blood MODERATE H (NEGATIVE) Urine Nitrite NEGATIVE (NEGATIVE) Urine Bilirubin SMALL H (NEGATIVE) Urine Urobilinogen 0.2 (<2.0) EU/dL Ur Leukocyte Esterase SMALL H (NEGATIVE) Urine RBC 0-2 (0-2/HPF) Urine WBC 0-2 (0-5/HPF) Ur Epithelial Cells OCCASIONAL (NONE-FEW) Urine Bacteria FEW (NEGATIVE) Influenza Type A RNA (NEGATIVE) Influenza Type B RNA (NEGATIVE) SARS-CoV-2 RNA (CLAY) (NEGATIVE) 08/15/21 08/15/21 Range/Units 05:25 05:25 WBC 7.48 (4.0-11.0) K/uL RBC 3.61 L (4.30-5.90) M/uL Hgb 11.8 L (12.0-16.0) g/dL Hct 33.8 L (36.0-46.0) % MCV 93.6 (80.0-98.0) fL MCH 32.7 H (27.0-32.0) pg MCHC 34.9 (31.0-37.0) g/dL RDW Std Deviation 43.8 (28.0-62.0) fl RDW Coeff of Carrie 13 (11.0-15.0) % Plt Count 267 (150-400) K/uL MPV 10.50 (7.40-12.00) fL Neut % (Auto) 86.1 H (48.0-80.0) % Lymph % (Auto) 12.8 L (16.0-40.0) % [place]ke % (Auto) 1.1 (0.0-15.0) % Eos % (Auto) 0.0 (0.0-7.0) % Baso % (Auto) 0.0 (0.0-1.5) % Neut # (Auto) 6.4 H (1.4-5.7) K/uL Lymph # (Auto) 1.0 (0.6-2.4) K/uL Coke # (Auto) 0.1 (0.0-0.8) K/uL Eos # (Auto) 0.0 (0.0-0.7) K/uL Baso # (Auto) 0.0 (0.0-0.1) K/uL Nucleated RBC % 0.0 /100WBC Nucleated RBCs # 0 K/uL D-Dimer, Quantitative (0.0-0.50) mg/L FEU Sodium 133 L (136-145) mmol/L Potassium 3.1 L (3.5-5.1) mmol/L Chloride 99 (98-107) mmol/L Carbon Dioxide 17.6 L (21.0-32.0) mmol/L BUN 8 (7.0-18.0) mg/dL Creatinine 0.6 (0.6-1.0) mg/dL Est Cr Clr Drug Dosing 85.69 mL/min Estimated GFR (MDRD) > 60.0 ml/min Glucose 143 H (74-106) mg/dL Lactic Acid (0.4-2.0) mmol/L Calcium 8.3 L (8.5-10.1) mg/dL Total Bilirubin 0.2 (0.2-1.0) mg/dL AST 25 (15-37) IU/L ALT 14 (14-63) IU/L Alkaline Phosphatase 95 (46-116) U/L Troponin I (0.000-0.056) ng/mL Total Protein 6.8 (6.4-8.2) g/dL Albumin 2.6 L (3.4-5.0) g/dL Globulin 4.2 H (2.6-4.0) g/dL Albumin/Globulin Ratio 0.6 L (0.9-1.6) Lipase (73-393) U/L Urine Color Urine Appearance Urine pH (5.0-8.0) Ur Specific [place] (1.001-1.035) Urine Protein (NEGATIVE) mg/dL Urine Glucose (UA) (NEGATIVE) mg/dL Urine Ketones (NEGATIVE) mg/dL Urine Occult Blood (NEGATIVE) Urine Nitrite (NEGATIVE) Urine Bilirubin (NEGATIVE) Urine Urobilinogen (<2.0) EU/dL Ur Leukocyte Esterase (NEGATIVE) Urine RBC (0-2/HPF) Urine WBC (0-5/HPF) Ur Epithelial Cells (NONE-FEW) Urine Bacteria (NEGATIVE) Influenza Type A RNA (NEGATIVE) Influenza Type B RNA (NEGATIVE) SARS-CoV-2 RNA (CLAY) (NEGATIVE) Result Diagrams: 08/15/21 05:25 08/15/21 05:25 William Results Last 24 hrs: Microbiology 08/14/21 16:21 Anaerobic Blood Culture - Final Blood - Venous Sepsis Event Note - Evaluation Sepsis Screening Result: No Definite Risk - Focused Exam Vital Signs: Vital Signs Temp Pulse Resp BP Pulse Ox 08/15/21 08:09 36.1 C 99 18 98/56 L 95 08/15/21 04:00 35.9 C L 98 16 103/61 98 08/15/21 00:00 35.6 C L 88 16 93/57 L 96 - Problem List & Annotations (1) COPD exacerbation SNOMED Code(s): 702024883 Code(s): J44.1 - CHRONIC OBSTRUCTIVE PULMONARY DISEASE W (ACUTE) EXACERBATION Status: Acute Current Visit: Yes (2) Community acquired pneumonia SNOMED Code(s): 234324568 Code(s): J18.9 - PNEUMONIA, UNSPECIFIED ORGANISM Status: Acute Current Visit: Yes - Problem List Review Problem List Initiated/Reviewed/Updated: Yes - My Orders Last 24 Hours: My Active Orders 08/14/21 19:02 Telemetry Monitoring [Cardiac Monitoring] [RC] Q8H 08/14/21 21:51 Acetaminophen/oxyCODONE [Percocet 325-10 MG] 1 tab PO QID PRN Baclofen [Lioresal] 10 mg PO TID PRN 08/14/21 21:57 Oxygen Therapy [RC] PRN Up ad Kimberlyn [RC] ASDIRECTED VTE/DVT Education [RC] PER UNIT ROUTINE Vital Signs [RC] Q4H Resuscitation Status Routine 08/14/21 21:58 Sequential Compression Device [OM.PC] Per Unit Routine 08/14/21 22:00 Enoxaparin [Lovenox] 40 mg SUBCUT Q24H fentaNYL [Duragesic] DOSE mcg TRDERM Q72H methylPREDNISolone Sod Succ [Solu-MEDROL] 40 mg IVPUSH Q8H 08/14/21 22:08 PT Evaluation and Treatment [CONS] Routine 08/14/21 22:12 Antiembolic Devices [RC] PER UNIT ROUTINE 08/14/21 22:31 RT Aerosol Therapy [RC] ASDIRECTED 08/15/21 00:00 Albuterol/Ipratropium [DuoNeb 3.0-0.5 MG/3 ML] 3 ml NEB Q6HRRT 08/15/21 09:00 Docusate Sodium [Colace 50 MG/5 ML Liquid] 50 mg PO DAILY 08/15/21 11:00 Lidocaine 5% [Lidoderm 5%] 700 mg TOP Q24H 08/15/21 11:57 Potassium Chloride [Klor-Con M20] 40 meq PO ONETIME ONE 08/15/21 16:00 Azithromycin [Zithromax] 500 mg IV Q24H cefTRIAXone [Rocephin in Dextrose,Iso-Osm 1 GM/50 ML] 1 gm Premix Bag 1 bag IV Q24H 08/15/21 22:00 Lidocaine 5% [Lidoderm 5%] 700 mg TRDERM Q24H - Plan Plan:: 55 yo female admitted for community acquired pneumonia and COPD. COPD: continue solumedrol, duonebs Pneumonia: on Rocephin, azithromycin Chronic back pain: on fentanyl patch, oxycodone, and baclofen
[2021-08-15] MEDS: cefTRIAXone 1 GM in Premix Bag 1 BAG IV SCH (15:58)
[2021-08-15] MEDS ORDERED: Azithromycin 500 MG Vial IV SCH (16:00)
[2021-08-15] MEDS: Azithromycin 500 MG in Sodium Chloride 0.9% 250 ML IV SCH (16:46)
[2021-08-15] MEDS: Enoxaparin 40 MG/0.4 ML Syringe SUBCUT SCH (21:17)
[2021-08-15] MEDS ORDERED: Lidocaine 5% 700 MG Patch TRDERM SCH (22:00)
[2021-08-16] MEDS: Acetaminophen/oxyCODONE 325-10 MG Tab PO PRN ×3 (02:38→19:59)
[2021-08-16] MEDS: Albuterol/Ipratropium 3.0-0.5 MG/3 ML Neb Soln NEB SCH ×3 (06:18→19:17)
[2021-08-16] MEDS: methylPREDNISolone Sodium Succinate 40 MG/1 ML SDV IVPUSH SCH ×2 (06:18→18:23)
[2021-08-16] MEDS: Docusate Sodium Liquid 100 MG/10 ML UD Cup PO SCH (08:24)
[2021-08-16] MEDS: Lidocaine 5% 700 MG Patch TOP SCH (11:12)
--- NOTE | 2021-08-16 11:29 | PCM.PN ---
- General Info Date of Service: 08/16/21 - Review of Systems Systems Review Comment:: feeling better, requires assistance with ambulation, shortness of breath improving - Patient Data Vitals - Most Recent: Last Vital Signs Temp 36.2 C 08/16/21 08:00 Pulse 120 H 08/16/21 08:00 Resp 18 08/16/21 08:00 BP 92/50 L 08/16/21 08:00 Pulse Ox 94 L 08/16/21 08:00 Weight - Most Recent: 51.846 kg I&O - Last 24 Hours: Intake & Output 08/15/21 08/16/21 08/16/21 22:59 06:59 14:59 Intake Total 700 300 Output Total 400 450 Balance 300 -150 William Results Last 24 Hours: Microbiology 08/14/21 16:21 Aerobic Blood Culture - Preliminary Blood - Venous NO GROWTH AFTER 1 DAY Anaerobic Blood Culture - Final 08/14/21 16:41 Aerobic Blood Culture - Preliminary Blood - Venous - Lab Draw NO GROWTH AFTER 1 DAY Anaerobic Blood Culture - Preliminary NO GROWTH AFTER 1 DAY Med Orders - Current: Current Medications Albuterol/Ipratropium (Albuterol/Ipratropium 3.0-0.5 Mg/3 Ml Neb Soln) 3 ml NEB Q6HRRT [facility] Last Admin: 08/16/21 06:18 Dose: 3 ml Documented by: Baclofen (Baclofen 10 Mg Tab) 10 mg PO TID PRN PRN Reason: Pain Docusate Sodium (Docusate Sodium Liquid 100 Mg/10 Ml Ud Cup) 50 mg PO DAILY [facility] Last Admin: 08/16/21 08:24 Dose: 50 mg Documented by: Enoxaparin Sodium (Enoxaparin 40 Mg/0.4 Ml Syringe) 40 mg SUBCUT Q24H [facility] Last Admin: 08/15/21 21:17 Dose: 40 mg Documented by: Fentanyl (Fentanyl 100 Mcg/Hr Transdermal Patch) 100 mcg TRDERM Q72H [facility] Ceftriaxone Sodium/Dextrose 1 (gm/ Premix) 50 mls @ 100 mls/hr IV Q24H [facility] Last Admin: 08/15/21 15:58 Dose: 100 mls/hr Documented by: Azithromycin 500 mg/ Sodium (Chloride) 250 mls @ 250 mls/hr IV Q24H [facility] Last Admin: 08/15/21 16:46 Dose: 250 mls/hr Documented by: Lidocaine (Lidocaine 5% 700 Mg Patch) 700 mg TOP Q24H [facility] Last Admin: 08/16/21 11:12 Dose: 700 mg Documented by: Methylprednisolone Sodium Succinate (Methylprednisolone Sodium Succinate 40 Mg/1 Ml Sdv) 40 mg IVPUSH Q8H [facility] Last Admin: 08/16/21 06:18 Dose: 40 mg Documented by: Miscellaneous Information (Remove Lidoderm Patch) 1 ea TRDERM Q24H [facility] Last Admin: 08/15/21 21:18 Dose: 1 ea Documented by: Oxycodone/Acetaminophen (Acetaminophen/Oxycodone 325-10 Mg Tab) 1 tab PO QID PRN PRN Reason: Pain Last Admin: 08/16/21 02:38 Dose: 1 tab Documented by: Discontinued Medications Albuterol/Ipratropium (Albuterol/Ipratropium 3.0-0.5 Mg/3 Ml Neb Soln) 9 ml NEB ONETIME ONE Stop: 08/14/21 14:42 Last Admin: 08/14/21 14:50 Dose: 9 ml Documented by: Sodium Chloride (Normal Saline) 1,000 mls @ 999 mls/hr IV BOLUS ONE Stop: 08/14/21 15:40 Last Admin: 08/14/21 14:51 Dose: 999 mls/hr Documented by: Azithromycin 500 mg/ Sodium (Chloride) 250 mls @ 250 mls/hr IV ONETIME [facility] Last Admin: 08/14/21 16:48 Dose: 250 mls/hr Documented by: Cefotaxime Sodium 1,000 mg/ (Sodium Chloride) 50 mls @ 100 mls/hr IV ONETIME ONE Stop: 08/14/21 15:59 Last Admin: 08/14/21 17:58 Dose: Not Given Documented by: Cefotaxime Sodium 1,000 mg/ (Sodium Chloride) 50 mls @ 100 mls/hr IV ONETIME ONE Stop: 08/14/21 17:14 Last Admin: 08/14/21 17:59 Dose: Not Given Documented by: Azithromycin 500 mg/ Sodium (Chloride) 250 mls @ 250 mls/hr IV ONETIME ONE Stop: 08/14/21 17:44 Last Admin: 08/14/21 17:59 Dose: Not Given Documented by: Ceftriaxone Sodium/Dextrose 1 (gm/ Premix) 50 mls @ 100 mls/hr IV ONETIME ONE Stop: 08/14/21 17:54 Last Admin: 08/14/21 17:53 Dose: 100 mls/hr Documented by: Sodium Chloride (Normal Saline) 1,000 mls @ 999 mls/hr IV STAT ONE Stop: 08/14/21 19:30 Last Admin: 08/14/21 18:34 Dose: 999 mls/hr Documented by: Iopamidol (Iopamidol 755 Mg/Ml 500 Ml Multipack Bottle) 100 ml IVPUSH ONETIME [facility] Stop: 08/14/21 17:16 Last Admin: 08/14/21 17:16 Dose: 100 ml Documented by: Lidocaine (Lidocaine 5% 700 Mg Patch) 700 mg TOP DAILY [facility] Lidocaine (Lidocaine 5% 700 Mg Patch) 700 mg TRDERM Q24H [facility] Methylprednisolone Sodium Succinate (Methylprednisolone Sodium Succinate 125 Mg/2 Ml Sdv) 125 mg IVPUSH ONETIME ONE Stop: 08/14/21 14:43 Last Admin: 08/14/21 14:50 Dose: 125 mg Documented by: Non-Formulary Medication (Lidocaine) 1 each TOP DAILY [facility] Last Admin: 08/15/21 11:05 Dose: Not Given Documented by: Potassium Chloride (Potassium Chloride 20 Meq Tab.Er) 40 meq PO ONETIME ONE Stop: 08/15/21 11:58 Last Admin: 08/15/21 12:41 Dose: 40 meq Documented by: - Exam General: Alert, Oriented Neck: Supple Lungs: Normal Respiratory Effort, Wheezing Cardiovascular: Regular Rate, Regular Rhythm GI/Abdominal Exam: Normal Bowel Sounds, Soft, Non-Tender Extremities: Non-Tender, No Pedal Edema Skin: Warm, Dry, Intact - Patient Data Result Diagrams: 08/15/21 05:25 08/15/21 05:25 William Results Last 24 hrs: Microbiology 08/14/21 16:21 Aerobic Blood Culture - Preliminary Blood - Venous NO GROWTH AFTER 1 DAY Anaerobic Blood Culture - Final 08/14/21 16:41 Aerobic Blood Culture - Preliminary Blood - Venous - Lab Draw NO GROWTH AFTER 1 DAY Anaerobic Blood Culture - Preliminary NO GROWTH AFTER 1 DAY Sepsis Event Note - Evaluation Sepsis Screening Result: No Definite Risk - Focused Exam Vital Signs: Vital Signs Temp Pulse Resp BP Pulse Ox 08/16/21 08:00 36.2 C 120 H 18 92/50 L 94 L 08/16/21 04:43 36.1 C 119 H 18 121/67 95 - Problem List & Annotations (1) COPD exacerbation SNOMED Code(s): 286546487 Code(s): J44.1 - CHRONIC OBSTRUCTIVE PULMONARY DISEASE W (ACUTE) EXACERBATION Status: Acute Current Visit: Yes (2) Community acquired pneumonia SNOMED Code(s): 518585390 Code(s): J18.9 - PNEUMONIA, UNSPECIFIED ORGANISM Status: Acute Current Visit: Yes - Problem List Review Problem List Initiated/Reviewed/Updated: Yes - My Orders Last 24 Hours: My Active Orders 08/15/21 11:00 Lidocaine 5% [Lidoderm 5%] 700 mg TOP Q24H 08/15/21 16:00 cefTRIAXone [Rocephin in Dextrose,Iso-Osm 1 GM/50 ML] 1 gm Premix Bag 1 bag IV Q24H 08/15/21 16:45 Azithromycin [Zithromax] 500 mg Sodium Chloride 0.9% [Normal Saline AdvBag] 250 ml IV Q24H 08/15/21 22:00 Remove Patch 1 ea TRDERM Q24H 08/17/21 05:11 BASIC METABOLIC PANEL,BMP [CHEM] AM CBC WITH AUTO DIFF [HEME] AM 08/17/21 12:00 fentaNYL [Duragesic] 100 mcg TRDERM Q72H - Plan Plan:: 55 yo female admitted for community acquired pneumonia and COPD. CAP: contiue rocephin and azithromycin COPD: on solumedrol and duonebs Generalized weakness/back pain: continue home medications, PT consulted
[2021-08-16] MEDS: cefTRIAXone 1 GM in Premix Bag 1 BAG IV SCH (16:03)
[2021-08-16] MEDS: Azithromycin 500 MG in Sodium Chloride 0.9% 250 ML IV SCH (16:53)
[2021-08-16] MEDS: Enoxaparin 40 MG/0.4 ML Syringe SUBCUT SCH (22:22)
[2021-08-17] MEDS: Albuterol/Ipratropium 3.0-0.5 MG/3 ML Neb Soln NEB SCH ×5 (00:25→23:00)
[2021-08-17] MEDS: Acetaminophen/oxyCODONE 325-10 MG Tab PO PRN ×4 (02:26→20:56)
[2021-08-17] MEDS: methylPREDNISolone Sodium Succinate 40 MG/1 ML SDV IVPUSH SCH (05:42)
[2021-08-17 07:28] LABS: BLOOD UREA NITROGEN,BUN 9 mg/dL (7.0-18.0); CARBON DIOXIDE,CO2 26.7 mmol/L (21.0-32.0); CHLORIDE,CL 99 mmol/L (98-107); GLUCOSE RANDOM 107 mg/dL (74-106); POTASSIUM,K 3.2 mmol/L (3.5-5.1); SODIUM,NA 136 mmol/L (136-145)
[2021-08-17] MEDS: Docusate Sodium Liquid 100 MG/10 ML UD Cup PO SCH (08:08)
--- NOTE | 2021-08-17 10:59 | PCM.PN ---
- General Info Date of Service: 08/17/21 - Review of Systems Systems Review Comment:: shortness of breath improving, needing assistance of one when walking - Patient Data Vitals - Most Recent: Last Vital Signs Temp 36.4 C 08/17/21 07:15 Pulse 101 H 08/17/21 07:15 Resp 18 08/17/21 07:15 BP 109/77 08/17/21 07:15 Pulse Ox 95 08/17/21 07:15 Weight - Most Recent: 51.846 kg I&O - Last 24 Hours: Intake & Output 08/16/21 08/17/21 08/17/21 22:59 06:59 14:59 Intake Total 590 460 Output Total 150 370 Balance 440 90 Lab Results Last 24 Hours: Laboratory Results - last 24 hr 08/17/21 08/17/21 Range/Units 06:15 06:15 WBC 12.06 H (4.0-11.0) K/uL RBC 3.68 L (4.30-5.90) M/uL Hgb 12.3 (12.0-16.0) g/dL Hct 34.4 L (36.0-46.0) % MCV 93.5 (80.0-98.0) fL MCH 33.4 H (27.0-32.0) pg MCHC 35.8 (31.0-37.0) g/dL RDW Std Deviation 44.4 (28.0-62.0) fl RDW Coeff of Carrie 13 (11.0-15.0) % Plt Count 278 (150-400) K/uL MPV 10.50 (7.40-12.00) fL Neut % (Auto) 81.2 H (48.0-80.0) % Lymph % (Auto) 11.1 L (16.0-40.0) % [place] % (Auto) 7.7 (0.0-15.0) % Eos % (Auto) 0.0 (0.0-7.0) % Baso % (Auto) 0.0 (0.0-1.5) % Neut # (Auto) 9.8 H (1.4-5.7) K/uL Lymph # (Auto) 1.3 (0.6-2.4) K/uL [place] # (Auto) 0.9 H (0.0-0.8) K/uL Eos # (Auto) 0.0 (0.0-0.7) K/uL Baso # (Auto) 0.0 (0.0-0.1) K/uL Nucleated RBC % 0.0 /100WBC Nucleated RBCs # 0 K/uL Sodium 136 (136-145) mmol/L Potassium 3.2 L (3.5-5.1) mmol/L Chloride 99 (98-107) mmol/L Carbon Dioxide 26.7 (21.0-32.0) mmol/L BUN 9 (7.0-18.0) mg/dL Creatinine 0.7 (0.6-1.0) mg/dL Est Cr Clr Drug Dosing 73.45 mL/min Estimated GFR (MDRD) > 60.0 ml/min Glucose 107 H (74-106) mg/dL Calcium 8.6 (8.5-10.1) mg/dL Magnesium 1.6 L (1.8-2.4) mg/dL William Results Last 24 Hours: Microbiology 08/14/21 16:21 Aerobic Blood Culture - Preliminary Blood - Venous NO GROWTH AFTER 2 DAYS Anaerobic Blood Culture - Final 08/14/21 16:41 Aerobic Blood Culture - Preliminary Blood - Venous - Lab Draw NO GROWTH AFTER 2 DAYS Anaerobic Blood Culture - Preliminary NO GROWTH AFTER 2 DAYS Med Orders - Current: Current Medications Albuterol/Ipratropium (Albuterol/Ipratropium 3.0-0.5 Mg/3 Ml Neb Soln) 3 ml NEB Q6HRRT [facility] Last Admin: 08/17/21 05:42 Dose: 3 ml Documented by: Baclofen (Baclofen 10 Mg Tab) 10 mg PO TID PRN PRN Reason: Pain Docusate Sodium (Docusate Sodium Liquid 100 Mg/10 Ml Ud Cup) 50 mg PO DAILY [facility] Last Admin: 08/17/21 08:08 Dose: 50 mg Documented by: Enoxaparin Sodium (Enoxaparin 40 Mg/0.4 Ml Syringe) 40 mg SUBCUT Q24H [facility] Last Admin: 08/16/21 22:22 Dose: 40 mg Documented by: Fentanyl (Fentanyl 100 Mcg/Hr Transdermal Patch) 100 mcg TRDERM Q72H [facility] Ceftriaxone Sodium/Dextrose 1 (gm/ Premix) 50 mls @ 100 mls/hr IV Q24H [facility] Last Admin: 08/16/21 16:03 Dose: 100 mls/hr Documented by: Azithromycin 500 mg/ Sodium (Chloride) 250 mls @ 250 mls/hr IV Q24H [facility] Last Admin: 08/16/21 16:53 Dose: 250 mls/hr Documented by: Lidocaine (Lidocaine 5% 700 Mg Patch) 700 mg TOP Q24H [facility] Last Admin: 08/16/21 11:12 Dose: 700 mg Documented by: Methylprednisolone Sodium Succinate (Methylprednisolone Sodium Succinate 40 Mg/1 Ml Sdv) 40 mg IVPUSH Q12H [facility] Last Admin: 08/17/21 05:42 Dose: 40 mg Documented by: Miscellaneous Information (Remove Lidoderm Patch) 1 ea TRDERM Q24H [facility] Last Admin: 08/16/21 22:23 Dose: 1 ea Documented by: Oxycodone/Acetaminophen (Acetaminophen/Oxycodone 325-10 Mg Tab) 1 tab PO QID ID N PRN Reason: Pain Last Admin: 08/17/21 08:50 Dose: 1 tab Documented by: Discontinued Medications Albuterol/Ipratropium (Albuterol/Ipratropium 3.0-0.5 Mg/3 Ml Neb Soln) 9 ml NEB ONETIME ONE Stop: 08/14/21 14:42 Last Admin: 08/14/21 14:50 Dose: 9 ml Documented by: Sodium Chloride (Normal Saline) 1,000 mls @ 999 mls/hr IV BOLUS ONE Stop: 08/14/21 15:40 Last Admin: 08/14/21 14:51 Dose: 999 mls/hr Documented by: Azithromycin 500 mg/ Sodium (Chloride) 250 mls @ 250 mls/hr IV ONETIME [facility] Last Admin: 08/14/21 16:48 Dose: 250 mls/hr Documented by: Cefotaxime Sodium 1,000 mg/ (Sodium Chloride) 50 mls @ 100 mls/hr IV ONETIME ONE Stop: 08/14/21 15:59 Last Admin: 08/14/21 17:58 Dose: Not Given Documented by: Cefotaxime Sodium 1,000 mg/ (Sodium Chloride) 50 mls @ 100 mls/hr IV ONETIME ONE Stop: 08/14/21 17:14 Last Admin: 08/14/21 17:59 Dose: Not Given Documented by: Azithromycin 500 mg/ Sodium (Chloride) 250 mls @ 250 mls/hr IV ONETIME ONE Stop: 08/14/21 17:44 Last Admin: 08/14/21 17:59 Dose: Not Given Documented by: Ceftriaxone Sodium/Dextrose 1 (gm/ Premix) 50 mls @ 100 mls/hr IV ONETIME ONE Stop: 08/14/21 17:54 Last Admin: 08/14/21 17:53 Dose: 100 mls/hr Documented by: Sodium Chloride (Normal Saline) 1,000 mls @ 999 mls/hr IV STAT ONE Stop: 08/14/21 19:30 Last Admin: 08/14/21 18:34 Dose: 999 mls/hr Documented by: Iopamidol (Iopamidol 755 Mg/Ml 500 Ml Multipack Bottle) 100 ml IVPUSH ONETIME [facility] Stop: 08/14/21 17:16 Last Admin: 08/14/21 17:16 Dose: 100 ml Documented by: Lidocaine (Lidocaine 5% 700 Mg Patch) 700 mg TOP DAILY [facility] Lidocaine (Lidocaine 5% 700 Mg Patch) 700 mg TRDERM Q24H [facility] Methylprednisolone Sodium Succinate (Methylprednisolone Sodium Succinate 125 Mg/2 Ml Sdv) 125 mg IVPUSH ONETIME ONE Stop: 08/14/21 14:43 Last Admin: 08/14/21 14:50 Dose: 125 mg Documented by: Methylprednisolone Sodium Succinate (Methylprednisolone Sodium Succinate 40 Mg/1 Ml Sdv) 40 mg IVPUSH Q8H [facility] Last Admin: 08/16/21 06:18 Dose: 40 mg Documented by: Non-Formulary Medication (Lidocaine) 1 each TOP DAILY [facility] Last Admin: 08/15/21 11:05 Dose: Not Given Documented by: Potassium Chloride (Potassium Chloride 20 Meq Tab.Er) 40 meq PO ONETIME ONE Stop: 08/15/21 11:58 Last Admin: 08/15/21 12:41 Dose: 40 meq Documented by: - Exam General: Alert, Oriented Neck: Supple Lungs: Clear to Auscultation, Normal Respiratory Effort Cardiovascular: Regular Rate, Regular Rhythm GI/Abdominal Exam: Soft, Non-Tender, No Distention Extremities: Non-Tender, No Pedal Edema Skin: Warm, Dry, Intact Neurological: No New Focal Deficit - Patient Data Lab Results Last 24 hrs: Laboratory Results - last 24 hr 08/17/21 08/17/21 Range/Units 06:15 06:15 WBC 12.06 H (4.0-11.0) K/uL RBC 3.68 L (4.30-5.90) M/uL Hgb 12.3 (12.0-16.0) g/dL Hct 34.4 L (36.0-46.0) % MCV 93.5 (80.0-98.0) fL MCH 33.4 H (27.0-32.0) pg MCHC 35.8 (31.0-37.0) g/dL RDW Std Deviation 44.4 (28.0-62.0) fl RDW Coeff of Carrie 13 (11.0-15.0) % Plt Count 278 (150-400) K/uL MPV 10.50 (7.40-12.00) fL Neut % (Auto) 81.2 H (48.0-80.0) % Lymph % (Auto) 11.1 L (16.0-40.0) % [place] % (Auto) 7.7 (0.0-15.0) % Eos % (Auto) 0.0 (0.0-7.0) % Baso % (Auto) 0.0 (0.0-1.5) % Neut # (Auto) 9.8 H (1.4-5.7) K/uL Lymph # (Auto) 1.3 (0.6-2.4) K/uL [place] # (Auto) 0.9 H (0.0-0.8) K/uL Eos # (Auto) 0.0 (0.0-0.7) K/uL Baso # (Auto) 0.0 (0.0-0.1) K/uL Nucleated RBC % 0.0 /100WBC Nucleated RBCs # 0 K/uL Sodium 136 (136-145) mmol/L Potassium 3.2 L (3.5-5.1) mmol/L Chloride 99 (98-107) mmol/L Carbon Dioxide 26.7 (21.0-32.0) mmol/L BUN 9 (7.0-18.0) mg/dL Creatinine 0.7 (0.6-1.0) mg/dL Est Cr Clr Drug Dosing 73.45 mL/min Estimated GFR (MDRD) > 60.0 ml/min Glucose 107 H (74-106) mg/dL Calcium 8.6 (8.5-10.1) mg/dL Magnesium 1.6 L (1.8-2.4) mg/dL Result Diagrams: 08/17/21 06:15 08/17/21 06:15 William Results Last 24 hrs: Microbiology 08/14/21 16:21 Aerobic Blood Culture - Preliminary Blood - Venous NO GROWTH AFTER 2 DAYS Anaerobic Blood Culture - Final 08/14/21 16:41 Aerobic Blood Culture - Preliminary Blood - Venous - Lab Draw NO GROWTH AFTER 2 DAYS Anaerobic Blood Culture - Preliminary NO GROWTH AFTER 2 DAYS Sepsis Event Note - Evaluation Sepsis Screening Result: No Definite Risk - Focused Exam Vital Signs: Vital Signs Temp Pulse Resp BP Pulse Ox 08/17/21 07:15 36.4 C 101 H 18 109/77 95 08/17/21 04:00 35.7 C L 80 16 110/64 95 08/17/21 00:00 35.8 C L 84 18 107/67 95 - Problem List & Annotations (1) COPD exacerbation SNOMED Code(s): 373429604 Code(s): J44.1 - CHRONIC OBSTRUCTIVE PULMONARY DISEASE W (ACUTE) EXACERBATION Status: Acute Current Visit: Yes (2) Community acquired pneumonia SNOMED Code(s): 467238328 Code(s): J18.9 - PNEUMONIA, UNSPECIFIED ORGANISM Status: Acute Current Visit: Yes - Problem List Review Problem List Initiated/Reviewed/Updated: Yes - My Orders Last 24 Hours: My Active Orders 08/16/21 18:00 methylPREDNISolone Sod Succ [Solu-MEDROL] 40 mg IVPUSH Q12H 08/17/21 12:00 fentaNYL [Duragesic] 100 mcg TRDERM Q72H - Plan Plan:: 55 yo female admitted for community acquired pneumonia and COPD. CAP: continue rocephin and azithromycin COPD: on solumedrol and duonebs Generalized weakness/back pain: continue home medications, PT consulted Dispo: likely in next two days
[2021-08-17] MEDS ORDERED: Potassium Chloride 20 MEQ Tab.ER PO ONE (11:00)
[2021-08-17] MEDS: Lidocaine 5% 700 MG Patch TOP SCH (11:05)
[2021-08-17] MEDS ORDERED: fentaNYL 100 MCG/HR Transdermal Patch TRDERM SCH (12:00)
[2021-08-17] MEDS: cefTRIAXone 1 GM in Premix Bag 1 BAG IV SCH (16:01)
[2021-08-17] MEDS: Azithromycin 500 MG in Sodium Chloride 0.9% 250 ML IV SCH (16:39)
[2021-08-17] MEDS: Doxycycline 100 MG Cap PO SCH (20:56)
[2021-08-17] MEDS: Enoxaparin 40 MG/0.4 ML Syringe SUBCUT SCH (21:07)
[2021-08-17] MEDS ORDERED: Calcium Carbonate 500 MG Tab.Chew PO PRN ×2 (22:41→22:42)
[2021-08-18] MEDS: Acetaminophen/oxyCODONE 325-10 MG Tab PO PRN ×4 (03:18→21:41)
[2021-08-18] MEDS: Albuterol/Ipratropium 3.0-0.5 MG/3 ML Neb Soln NEB SCH ×4 (05:41→23:39)
[2021-08-18 07:42] LABS: BLOOD UREA NITROGEN,BUN 7 mg/dL (7.0-18.0); CARBON DIOXIDE,CO2 27.5 mmol/L (21.0-32.0); CHLORIDE,CL 100 mmol/L (98-107); GLUCOSE RANDOM 80 mg/dL (74-106); POTASSIUM,K 3.1 mmol/L (3.5-5.1); SODIUM,NA 136 mmol/L (136-145)
[2021-08-18] MEDS: Docusate Sodium Liquid 100 MG/10 ML UD Cup PO SCH (08:42)
[2021-08-18] MEDS: Doxycycline 100 MG Cap PO SCH ×2 (08:43→20:16)
[2021-08-18] MEDS: methylPREDNISolone Sodium Succinate 40 MG/1 ML SDV IVPUSH SCH (08:44)
[2021-08-18] MEDS: Lidocaine 5% 700 MG Patch TOP SCH (10:59)
--- NOTE | 2021-08-18 13:03 | PCM.PN ---
- General Info Date of Service: 08/18/21 - Review of Systems Systems Review Comment:: feeling better, strength improving - Patient Data Vitals - Most Recent: Last Vital Signs Temp 36.7 C 08/18/21 11:43 Pulse 109 H 08/18/21 11:43 Resp 18 08/18/21 11:43 BP 100/63 08/18/21 11:43 Pulse Ox 91 L 08/18/21 11:43 Weight - Most Recent: 51.846 kg I&O - Last 24 Hours: Intake & Output 08/17/21 08/18/21 08/18/21 22:59 06:59 14:59 Intake Total 450 340 Output Total 400 560 Balance 50 -220 Lab Results Last 24 Hours: Laboratory Results - last 24 hr 08/18/21 08/18/21 Range/Units 06:05 06:05 WBC 9.47 (4.0-11.0) K/uL RBC 3.57 L (4.30-5.90) M/uL Hgb 11.8 L (12.0-16.0) g/dL Hct 33.6 L (36.0-46.0) % MCV 94.1 (80.0-98.0) fL MCH 33.1 H (27.0-32.0) pg MCHC 35.1 (31.0-37.0) g/dL RDW Std Deviation 44.5 (28.0-62.0) fl RDW Coeff of Carrie 13 (11.0-15.0) % Plt Count 272 (150-400) K/uL MPV 10.40 (7.40-12.00) fL Neut % (Auto) 62.3 (48.0-80.0) % Lymph % (Auto) 27.5 (16.0-40.0) % [place] % (Auto) 9.9 (0.0-15.0) % Eos % (Auto) 0.2 (0.0-7.0) % Baso % (Auto) 0.1 (0.0-1.5) % Neut # (Auto) 5.9 H (1.4-5.7) K/uL Lymph # (Auto) 2.6 H (0.6-2.4) K/uL Hampton # (Auto) 0.9 H (0.0-0.8) K/uL Eos # (Auto) 0.0 (0.0-0.7) K/uL Baso # (Auto) 0.0 (0.0-0.1) K/uL Nucleated RBC % 0.0 /100WBC Nucleated RBCs # 0 K/uL Sodium 136 (136-145) mmol/L Potassium 3.1 L (3.5-5.1) mmol/L Chloride 100 (98-107) mmol/L Carbon Dioxide 27.5 (21.0-32.0) mmol/L BUN 7 (7.0-18.0) mg/dL Creatinine 0.6 (0.6-1.0) mg/dL Est Cr Clr Drug Dosing 85.69 mL/min Estimated GFR (MDRD) > 60.0 ml/min Glucose 80 (74-106) mg/dL Calcium 8.5 (8.5-10.1) mg/dL William Results Last 24 Hours: Microbiology 08/14/21 18:00 Urine Culture - Final Urine 08/14/21 16:21 Aerobic Blood Culture - Preliminary Blood - Venous NO GROWTH AFTER 3 DAYS Anaerobic Blood Culture - Final 08/14/21 16:41 Aerobic Blood Culture - Preliminary Blood - Venous - Lab Draw NO GROWTH AFTER 3 DAYS Anaerobic Blood Culture - Preliminary NO GROWTH AFTER 3 DAYS Med Orders - Current: Current Medications Albuterol/Ipratropium (Albuterol/Ipratropium 3.0-0.5 Mg/3 Ml Neb Soln) 3 ml NEB Q6HRRT [facility] Last Admin: 08/18/21 05:41 Dose: 3 ml Documented by: Baclofen (Baclofen 10 Mg Tab) 10 mg PO TID PRN PRN Reason: Pain Last Admin: 08/17/21 12:21 Dose: 10 mg Documented by: Calcium Carbonate/Glycine (Calcium Carbonate 500 Mg Tab.Chew) 500 mg PO TID PRN PRN Reason: Indigestion Last Admin: 08/17/21 22:58 Dose: 500 mg Documented by: Calcium Carbonate/Glycine (Calcium Carbonate 500 Mg Tab.Chew) 1,000 mg PO TID PRN PRN Reason: Indigestion Docusate Sodium (Docusate Sodium Liquid 100 Mg/10 Ml Ud Cup) 50 mg PO DAILY [facility] Last Admin: 08/18/21 08:42 Dose: 50 mg Documented by: Doxycycline Hyclate (Doxycycline 100 Mg Cap) 100 mg PO BID [facility] Last Admin: 08/18/21 08:43 Dose: 100 mg Documented by: Enoxaparin Sodium (Enoxaparin 40 Mg/0.4 Ml Syringe) 40 mg SUBCUT Q24H [facility] Last Admin: 08/17/21 21:07 Dose: 40 mg Documented by: Fentanyl (Fentanyl 100 Mcg/Hr Transdermal Patch) 100 mcg TRDERM Q72H [facility] Last Admin: 08/17/21 12:21 Dose: 100 mcg Documented by: Ceftriaxone Sodium/Dextrose 1 (gm/ Premix) 50 mls @ 100 mls/hr IV Q24H [facility] Last Admin: 08/17/21 16:01 Dose: 100 mls/hr Documented by: Lidocaine (Lidocaine 5% 700 Mg Patch) 700 mg TOP Q24H [facility] Last Admin: 08/18/21 10:59 Dose: 700 mg Documented by: Methylprednisolone Sodium Succinate (Methylprednisolone Sodium Succinate 40 Mg/1 Ml Sdv) 40 mg IVPUSH DAILY [facility] Last Admin: 08/18/21 08:44 Dose: 40 mg Documented by: Miscellaneous Information (Remove Lidoderm Patch) 1 ea TRDERM Q24H [facility] Last Admin: 08/18/21 07:14 Dose: 1 ea Documented by: Oxycodone/Acetaminophen (Acetaminophen/Oxycodone 325-10 Mg Tab) 1 tab PO QID PRN PRN Reason: Pain Last Admin: 08/18/21 09:25 Dose: 1 tab Documented by: Discontinued Medications Albuterol/Ipratropium (Albuterol/Ipratropium 3.0-0.5 Mg/3 Ml Neb Soln) 9 ml NEB ONETIME ONE Stop: 08/14/21 14:42 Last Admin: 08/14/21 14:50 Dose: 9 ml Documented by: Sodium Chloride (Normal Saline) 1,000 mls @ 999 mls/hr IV BOLUS ONE Stop: 08/14/21 15:40 Last Admin: 08/14/21 14:51 Dose: 999 mls/hr Documented by: Azithromycin 500 mg/ Sodium (Chloride) 250 mls @ 250 mls/hr IV ONETIME [facility] Last Admin: 08/14/21 16:48 Dose: 250 mls/hr Documented by: Cefotaxime Sodium 1,000 mg/ (Sodium Chloride) 50 mls @ 100 mls/hr IV ONETIME O NE Stop: 08/14/21 15:59 Last Admin: 08/14/21 17:58 Dose: Not Given Documented by: Cefotaxime Sodium 1,000 mg/ (Sodium Chloride) 50 mls @ 100 mls/hr IV ONETIME ONE Stop: 08/14/21 17:14 Last Admin: 08/14/21 17:59 Dose: Not Given Documented by: Azithromycin 500 mg/ Sodium (Chloride) 250 mls @ 250 mls/hr IV ONETIME ONE Stop: 08/14/21 17:44 Last Admin: 08/14/21 17:59 Dose: Not Given Documented by: Ceftriaxone Sodium/Dextrose 1 (gm/ Premix) 50 mls @ 100 mls/hr IV ONETIME ONE Stop: 08/14/21 17:54 Last Admin: 08/14/21 17:53 Dose: 100 mls/hr Documented by: Sodium Chloride (Normal Saline) 1,000 mls @ 999 mls/hr IV STAT ONE Stop: 08/14/21 19:30 Last Admin: 08/14/21 18:34 Dose: 999 mls/hr Documented by: Azithromycin 500 mg/ Sodium (Chloride) 250 mls @ 250 mls/hr IV Q24H [facility] Last Admin: 08/17/21 16:39 Dose: 250 mls/hr Documented by: Iopamidol (Iopamidol 755 Mg/Ml 500 Ml Multipack Bottle) 100 ml IVPUSH ONETIME STA Stop: 08/14/21 17:16 Last Admin: 08/14/21 17:16 Dose: 100 ml Documented by: Lidocaine (Lidocaine 5% 700 Mg Patch) 700 mg TOP DAILY [facility] Lidocaine (Lidocaine 5% 700 Mg Patch) 700 mg TRDERM Q24H [facility] Methylprednisolone Sodium Succinate (Methylprednisolone Sodium Succinate 125 Mg/2 Ml Sdv) 125 mg IVPUSH ONETIME ONE Stop: 08/14/21 14:43 Last Admin: 08/14/21 14:50 Dose: 125 mg Documented by: Methylprednisolone Sodium Succinate (Methylprednisolone Sodium Succinate 40 Mg/1 Ml Sdv) 40 mg IVPUSH Q8H [facility] Last Admin: 08/16/21 06:18 Dose: 40 mg Documented by: Methylprednisolone Sodium Succinate (Methylprednisolone Sodium Succinate 40 Mg/1 Ml Sdv) 40 mg IVPUSH Q12H [facility] Last Admin: 08/17/21 05:42 Dose: 40 mg Documented by: Non-Formulary Medication (Lidocaine) 1 each TOP DAILY [facility] Last Admin: 08/15/21 11:05 Dose: Not Given Documented by: Potassium Chloride (Potassium Chloride 20 Meq Tab.Er) 40 meq PO ONETIME ONE Stop: 08/15/21 11:58 Last Admin: 08/15/21 12:41 Dose: 40 meq Documented by: Potassium Chloride (Potassium Chloride 20 Meq Tab.Er) 40 meq PO ONETIME ONE Stop: 08/17/21 11:01 Last Admin: 08/17/21 12:21 Dose: 40 meq Documented by: - Exam General: Alert, Oriented Lungs: Normal Respiratory Effort, Wheezing Cardiovascular: Regular Rate, Regular Rhythm GI/Abdominal Exam: Normal Bowel Sounds, Soft, Non-Tender Extremities: Non-Tender, No Pedal Edema - Patient Data Lab Results Last 24 hrs: Laboratory Results - last 24 hr 08/18/21 08/18/21 Range/Units 06:05 06:05 WBC 9.47 (4.0-11.0) K/uL RBC 3.57 L (4.30-5.90) M/uL Hgb 11.8 L (12.0-16.0) g/dL Hct 33.6 L (36.0-46.0) % MCV 94.1 (80.0-98.0) fL MCH 33.1 H (27.0-32.0) pg MCHC 35.1 (31.0-37.0) g/dL RDW Std Deviation 44.5 (28.0-62.0) fl RDW Coeff of Carrie 13 (11.0-15.0) % Plt Count 272 (150-400) K/uL MPV 10.40 (7.40-12.00) fL Neut % (Auto) 62.3 (48.0-80.0) % Lymph % (Auto) 27.5 (16.0-40.0) % [place] % (Auto) 9.9 (0.0-15.0) % Eos % (Auto) 0.2 (0.0-7.0) % Baso % (Auto) 0.1 (0.0-1.5) % Neut # (Auto) 5.9 H (1.4-5.7) K/uL Lymph # (Auto) 2.6 H (0.6-2.4) K/uL [place] # (Auto) 0.9 H (0.0-0.8) K/uL Eos # (Auto) 0.0 (0.0-0.7) K/uL Baso # (Auto) 0.0 (0.0-0.1) K/uL Nucleated RBC % 0.0 /100WBC Nucleated RBCs # 0 K/uL Sodium 136 (136-145) mmol/L Potassium 3.1 L (3.5-5.1) mmol/L Chloride 100 (98-107) mmol/L Carbon Dioxide 27.5 (21.0-32.0) mmol/L BUN 7 (7.0-18.0) mg/dL Creatinine 0.6 (0.6-1.0) mg/dL Est Cr Clr Drug Dosing 85.69 mL/min Estimated GFR (MDRD) > 60.0 ml/min Glucose 80 (74-106) mg/dL Calcium 8.5 (8.5-10.1) mg/dL Result Diagrams: 08/18/21 06:05 08/18/21 06:05 William Results Last 24 hrs: Microbiology 08/14/21 18:00 Urine Culture - Final Urine 08/14/21 16:21 Aerobic Blood Culture - Preliminary Blood - Venous NO GROWTH AFTER 3 DAYS Anaerobic Blood Culture - Final 08/14/21 16:41 Aerobic Blood Culture - Preliminary Blood - Venous - Lab Draw NO GROWTH AFTER 3 DAYS Anaerobic Blood Culture - Preliminary NO GROWTH AFTER 3 DAYS Sepsis Event Note - Evaluation Sepsis Screening Result: No Definite Risk - Focused Exam Vital Signs: Vital Signs Temp Pulse Resp BP Pulse Ox 08/18/21 11:43 36.7 C 109 H 18 100/63 91 L 08/18/21 07:26 36.2 C 109 H 16 124/70 92 L 08/18/21 04:00 35.8 C L 83 17 117/69 92 L - Problem List & Annotations (1) COPD exacerbation SNOMED Code(s): 795184241 Code(s): J44.1 - CHRONIC OBSTRUCTIVE PULMONARY DISEASE W (ACUTE) EXACERBATION Status: Acute Current Visit: Yes (2) Community acquired pneumonia SNOMED Code(s): 855579966 Code(s): J18.9 - PNEUMONIA, UNSPECIFIED ORGANISM Status: Acute Current Visit: Yes - Problem List Review Problem List Initiated/Reviewed/Updated: Yes - My Orders Last 24 Hours: My Active Orders 08/17/21 21:00 Doxycycline [Vibramycin] 100 mg PO BID 08/17/21 22:41 Calcium Carbonate [Tums] 500 mg PO TID PRN 08/17/21 22:42 Calcium Carbonate [Tums] 1,000 mg PO TID PRN 08/18/21 09:00 methylPREDNISolone Sod Succ [Solu-MEDROL] 40 mg IVPUSH DAILY 08/19/21 05:11 BASIC METABOLIC PANEL,BMP [CHEM] AM CBC WITH AUTO DIFF [HEME] AM - Plan Plan:: 55 yo female admitted for community acquired pneumonia and COPD. CAP: continue rocephin and doxycycline COPD: on solumedrol and duonebs Generalized weakness/back pain: continue home medications, PT consulted Dispo: likely home tomorrow
[2021-08-18] MEDS: cefTRIAXone 1 GM in Premix Bag 1 BAG IV SCH (15:35)
[2021-08-18] MEDS ORDERED: Potassium Chloride 20 MEQ Tab.ER PO ONE (21:00)
[2021-08-18] MEDS: Enoxaparin 40 MG/0.4 ML Syringe SUBCUT SCH (21:41)
[2021-08-19] MEDS: Acetaminophen/oxyCODONE 325-10 MG Tab PO PRN ×2 (03:42→09:39)
[2021-08-19] MEDS: Albuterol/Ipratropium 3.0-0.5 MG/3 ML Neb Soln NEB SCH ×2 (05:51→11:41)
[2021-08-19 07:27] LABS: BLOOD UREA NITROGEN,BUN 10 mg/dL (7.0-18.0); CHLORIDE,CL 97 mmol/L (98-107); GLUCOSE RANDOM 72 mg/dL (74-106); POTASSIUM,K 3.6 mmol/L (3.5-5.1); SODIUM,NA 134 mmol/L (136-145)
[2021-08-19 07:56] VITALS: BP 133/72; PULSE 97
[2021-08-19] MEDS: Doxycycline 100 MG Cap PO SCH (08:29)
[2021-08-19] MEDS: Docusate Sodium Liquid 100 MG/10 ML UD Cup PO SCH (08:29)
[2021-08-19] MEDS: methylPREDNISolone Sodium Succinate 40 MG/1 ML SDV IVPUSH SCH (08:29)
[2021-08-19] MEDS: Lidocaine 5% 700 MG Patch TOP SCH (10:15)
--- NOTE | 2021-08-19 11:57 | PCM.DCSUM1 ---
Discharge Summary - Hospital Course Brief History: 55 yo female with pmh of COPD and chronic back pain who presents to the ED with complaint of generalized weakness. Over the past several weeks patient has reported progressive shortness of breath and productive cough. She stopped smoking as she was unable to ambulate outside her house. She reports it has gotten to the point were she is unable to walk more than a few feet without having her legs give out on her. In the ED she was noted to desat after ambulating and became tachycardic with HR in the 130s. She did have wheezing noted on exam. She was given Rocephin, azithromycin and solumedrol in the ED. - Discharge Data Discharge Date: 08/19/21 Discharge Disposition: Home, Self-Care 01 Condition: Stable - Referral to Home Health Primary Care Physician: Chetan Guardado MD - Discharge Diagnosis/Problem(s) (1) COPD exacerbation SNOMED Code(s): 860878561 ICD Code: J44.1 - CHRONIC OBSTRUCTIVE PULMONARY DISEASE W (ACUTE) EXACERBATION Status: Acute Current Visit: Yes (2) Community acquired pneumonia SNOMED Code(s): 077174267 ICD Code: J18.9 - PNEUMONIA, UNSPECIFIED ORGANISM Status: Acute Current Visit: Yes (3) Hypoxia SNOMED Code(s): 004061621 ICD Code: R09.02 - HYPOXEMIA Status: Acute Current Visit: Yes - Patient Summary/Data Consults: Consultations 08/14/21 22:08 PT Evaluation and Treatment [CONS] Routine Hospital Course: Admission diagnoses COPD exacerbation CAP Discharge diagnoses COPD exacerbation resolved CAP improved Other PMH COPD Chronic back pain This 55-year-old female was admitted with CAP and COPD exacerbation. She was treated with Rocephin and doxycycline. She has continued to improve daily leukocytosis improved. She is no longer requiring oxygen. And feeling much improved. She was also treated with steroids during her stay and has since been tapered down to 40 mg IV daily. Today she is feeling much improved and would like to go home. She will be discharged home on 30 more tabs of doxycycline to have a complete 7-day course. She also be sent with small prednisone taper for COPD exacerbation. She is to continue home inhalers. We did discuss obtaining the COVID-19 vaccination which she has not received any at this point. We did discuss that she may feel ill a day or 2 after as her body build an immune response and she will receive this vaccination as an outpatient. She will have follow-up with PCP in 7 to 10 days. She is to return to the ER clinic if c oncerns should arise sooner. - Patient Instructions Diet: Usual Diet as Tolerated Activity: No Strenuous Activities, Rest and Relax Today Showering/Bathing: May Shower Notify Provider of: Fever, Increased Pain, Swelling and Redness, Drainage, Nausea and/or Vomiting - Discharge Plan *PRESCRIPTION DRUG MONITORING PROGRAM REVIEWED*: Not Applicable *COPY OF PRESCRIPTION DRUG MONITORING REPORT IN PATIENT MAYRA: Not Applicable Prescriptions/Med Rec: predniSONE [Prednisone] 20 - 40 mg PO DAILY #7 tablet Doxycycline [Vibramycin] 100 mg PO DAILY #3 tab Home Medications: Home Meds Baclofen [Lioresal] 10 - 20 mg PO TID PRN 10/07/16 [History] amLODIPine [Norvasc] 5 mg PO DAILY 10/07/16 [History] oxyCODONE HCl/Acetaminophen [Percocet 10-325 mg Tablet] 1 tab PO QID PRN [History] Docusate Sodium [Stool Softener] 50 mg PO DAILY 04/24/20 [History] Lidocaine 1 each TP DAILY 04/24/20 [History] Potassium Citrate [Potassium Citrate ER] 5 meq PO DAILY 04/24/20 [History] fentaNYL [Duragesic] 1 patch TD Q72H 04/24/20 [History] Doxycycline [Vibramycin] 100 mg PO DAILY #3 tab 08/19/21 [Rx] predniSONE [Prednisone] 20 - 40 mg PO DAILY #7 tablet 08/19/21 [Rx] Oxygen Therapy Mode: Room Air Patient Handouts: Chronic Obstructive Pulmonary Disease Exacerbation, [id number], Hypoxia, Weakness, [id number], COPD and Physical Activity, Community-Acquired Pneumonia, Adult, [id number] Referrals: Chetan Guardado MD [Primary Care Provider] - 08/27/21 3:00 pm - Discharge Summary/Plan Comment DC Time >30 min.: No Total # of Minutes for Discharge Time: 25 - Patient Data Vitals - Most Recent: Last Vital Signs Temp 97.4 F 08/19/21 07:00 Pulse 97 08/19/21 07:00 Resp 16 08/19/21 07:00 BP 133/72 08/19/21 07:00 Pulse Ox 95 01/03/22 07:00 Weight - Most Recent: 51.846 kg I&O - Last 24 hours: Intake & Output 08/18/21 08/19/21 08/19/21 22:59 06:59 14:59 Intake Total 1085 500 Output Total 1400 450 Balance -315 50 Lab Results - Last 24 hrs: Laboratory Results - last 24 hr 08/19/21 08/19/21 Range/Units 05:26 05:26 WBC 8.84 (4.0-11.0) K/uL RBC 3.70 L (4.30-5.90) M/uL Hgb 12.2 (12.0-16.0) g/dL Hct 35.3 L (36.0-46.0) % MCV 95.4 (80.0-98.0) fL MCH 33.0 H (27.0-32.0) pg MCHC 34.6 (31.0-37.0) g/dL RDW Std Deviation 45.7 (28.0-62.0) fl RDW Coeff of Carrie 13 (11.0-15.0) % Plt Count 279 (150-400) K/uL MPV 10.30 (7.40-12.00) fL Neut % (Auto) 64.5 (48.0-80.0) % Lymph % (Auto) 23.8 (16.0-40.0) % Owen % (Auto) 10.7 (0.0-15.0) % Eos % (Auto) 0.9 (0.0-7.0) % Baso % (Auto) 0.1 (0.0-1.5) % Neut # (Auto) 5.7 (1.4-5.7) K/uL Lymph # (Auto) 2.1 (0.6-2.4) K/uL Owen # (Auto) 1.0 H (0.0-0.8) K/uL Eos # (Auto) 0.1 (0.0-0.7) K/uL Baso # (Auto) 0.0 (0.0-0.1) K/uL Nucleated RBC % 0.0 /100WBC Nucleated RBCs # 0 K/uL Sodium 134 L (136-145) mmol/L Potassium 3.6 (3.5-5.1) mmol/L Chloride 97 L (98-107) mmol/L Carbon Dioxide 30.0 (21.0-32.0) mmol/L BUN 10 (7.0-18.0) mg/dL Creatinine 0.6 (0.6-1.0) mg/dL Est Cr Clr Drug Dosing 85.69 mL/min Estimated GFR (MDRD) > 60.0 ml/min Glucose 72 L (74-106) mg/dL Calcium 9.1 (8.5-10.1) mg/dL ARPITA Results - Last 24 hrs: Microbiology 08/14/21 16:21 Aerobic Blood Culture - Preliminary Blood - Venous NO GROWTH AFTER 4 DAYS Anaerobic Blood Culture - Final 08/14/21 16:41 Aerobic Blood Culture - Preliminary Blood - Venous - Lab Draw NO GROWTH AFTER 4 DAYS Anaerobic Blood Culture - Preliminary NO GROWTH AFTER 4 DAYS 08/14/21 18:00 Urine Culture - Final Urine Med Orders - Current: Current Medications Albuterol/Ipratropium (Albuterol/Ipratropium 3.0-0.5 Mg/3 Ml Neb Soln) 3 ml NEB Q6HRRT [facility] Last Admin: 08/19/21 11:41 Dose: Not Given Documented by: Baclofen (Baclofen 10 Mg Tab) 10 mg PO TID PRN PRN Reason: Pain Last Admin: 08/17/21 12:21 Dose: 10 mg Documented by: Calcium Carbonate/Glycine (Calcium Carbonate 500 Mg Tab.Chew) 500 mg PO TID PRN PRN Reason: Indigestion Last Admin: 08/17/21 22:58 Dose: 500 mg Documented by: Calcium Carbonate/Glycine (Calcium Carbonate 500 Mg Tab.Chew) 1,000 mg PO TID PRN PRN Reason: Indigestion Last Admin: 08/18/21 23:39 Dose: 1,000 mg Documented by: Docusate Sodium (Docusate Sodium Liquid 100 Mg/10 Ml Ud Cup) 50 mg PO DAILY [facility] Last Admin: 08/19/21 08:29 Dose: 50 mg Documented by: Doxycycline Hyclate (Doxycycline 100 Mg Cap) 100 mg PO BID [facility] Last Admin: 08/19/21 08:29 Dose: 100 mg Documented by: Enoxaparin Sodium (Enoxaparin 40 Mg/0.4 Ml Syringe) 40 mg SUBCUT Q24H [facility] Last Admin: 08/18/21 21:41 Dose: 40 mg Documented by: Fentanyl (Fentanyl 100 Mcg/Hr Transdermal Patch) 100 mcg TRDERM Q72H [facility] Last Admin: 08/17/21 12:21 Dose: 100 mcg Documented by: Ceftriaxone Sodium/Dextrose 1 (gm/ Premix) 50 mls @ 100 mls/hr IV Q24H [facility] Last Admin: 08/18/21 15:35 Dose: 100 mls/hr Documented by: Lidocaine (Lidocaine 5% 700 Mg Patch) 700 mg TOP Q24H [facility] Last Admin: 08/19/21 10:15 Dose: 700 mg Documented by: Methylprednisolone Sodium Succinate (Methylprednisolone Sodium Succinate 40 Mg/1 Ml Sdv) 40 mg IVPUSH DAILY [facility] Last Admin: 08/19/21 08:29 Dose: 40 mg Documented by: Miscellaneous Information (Remove Lidoderm Patch) 1 ea TRDERM Q24H [facility] Last Admin: 08/18/21 21:46 Dose: 1 ea Documented by: Oxycodone/Acetaminophen (Acetaminophen/Oxycodone 325-10 Mg Tab) 1 tab PO QID PRN PRN Reason: Pain Last Admin: 08/19/21 09:39 Dose: 1 tab Documented by: Discontinued Medications Albuterol/Ipratropium (Albuterol/Ipratropium 3.0-0.5 Mg/3 Ml Neb Soln) 9 ml NEB ONETIME ONE Stop: 08/14/21 14:42 Last Admin: 08/14/21 14:50 Dose: 9 ml Documented by: Sodium Chloride (Normal Saline) 1,000 mls @ 999 mls/hr IV BOLUS ONE Stop: 08/14/21 15:40 Last Admin: 08/14/21 14:51 Dose: 999 mls/hr Documented by: Azithromycin 500 mg/ Sodium (Chloride) 250 mls @ 250 mls/hr IV ONETIME [facility] Last Admin: 08/14/21 16:48 Dose: 250 mls/hr Documented by: Cefotaxime Sodium 1,000 mg/ (Sodium Chloride) 50 mls @ 100 mls/hr IV ONETIME ONE Stop: 08/14/21 15:59 Last Admin: 08/14/21 17:58 Dose: Not Given Documented by: Cefotaxime Sodium 1,000 mg/ (Sodium Chloride) 50 mls @ 100 mls/hr IV ONETIME ONE Stop: 08/14/21 17:14 Last Admin: 08/14/21 17:59 Dose: Not Given Documented by: Azithromycin 500 mg/ Sodium (Chloride) 250 mls @ 250 mls/hr IV ONETIME ONE Stop: 08/14/21 17:44 Last Admin: 08/14/21 17:59 Dose: Not Given Documented by: Ceftriaxone Sodium/Dextrose 1 (gm/ Premix) 50 mls @ 100 mls/hr IV ONETIME ONE Stop: 08/14/21 17:54 Last Admin: 08/14/21 17:53 Dose: 100 mls/hr Documented by: Sodium Chloride (Normal Saline) 1,000 mls @ 999 mls/hr IV STAT ONE Stop: 08/14/21 19:30 Last Admin: 08/14/21 18:34 Dose: 999 mls/hr Documented by: Azithromycin 500 mg/ Sodium (Chloride) 250 mls @ 250 mls/hr IV Q24H [facility] Last Admin: 08/17/21 16:39 Dose: 250 mls/hr Documented by: Iopamidol (Iopamidol 755 Mg/Ml 500 Ml Multipack Bottle) 100 ml IVPUSH ONETIME ST[facility] Stop: 08/14/21 17:16 Last Admin: 08/14/21 17:16 Dose: 100 ml Documented by: Lidocaine (Lidocaine 5% 700 Mg Patch) 700 mg TOP DAILY [facility] Lidocaine (Lidocaine 5% 700 Mg Patch) 700 mg TRDERM Q24H [facility] Methylprednisolone Sodium Succinate (Methylprednisolone Sodium Succinate 125 Mg/2 Ml Sdv) 125 mg IVPUSH ONETIME ONE Stop: 08/14/21 14:43 Last Admin: 08/14/21 14:50 Dose: 125 mg Documented by: Methylprednisolone Sodium Succinate (Methylprednisolone Sodium Succinate 40 Mg/1 Ml Sdv) 40 mg IVPUSH Q8H [facility] Last Admin: 08/16/21 06:18 Dose: 40 mg Documented by: Methylprednisolone Sodium Succinate (Methylprednisolone Sodium Succinate 40 Mg/1 Ml Sdv) 40 mg IVPUSH Q12H [facility] Last Admin: 08/17/21 05:42 Dose: 40 mg Documented by: Non-Formulary Medication (Lidocaine) 1 each TOP DAILY [facility] Last Admin: 08/15/21 11:05 Dose: Not Given Documented by: Potassium Chloride (Potassium Chloride 20 Meq Tab.Er) 40 meq PO ONETIME ONE Stop: 08/15/21 11:58 Last Admin: 08/15/21 12:41 Dose: 40 meq Documented by: Potassium Chloride (Potassium Chloride 20 Meq Tab.Er) 40 meq PO ONETIME ONE Stop: 08/17/21 11:01 Last Admin: 08/17/21 12:21 Dose: 40 meq Documented by: Potassium Chloride (Potassium Chloride 20 Meq Tab.Er) 40 meq PO ONETIME ONE Stop: 08/18/21 21:01 Last Admin: 08/18/21 20:20 Dose: 40 meq Documented by:
--- NOTE | 2021-08-21 11:37 | PCM.EKG ---
#1 Interpretation EKG Date: 08/15/21 Time: 08:24 Rhythm: NSR Rate (Beats/Min): 93 P-Wave: Present QRS: Normal ST-T: Normal
== END 2021-08-19 11:15 | disposition home or self-care (01) | DRG 190 ==
LOC: MW.ED 13:58 → MW.MS 18:35
PROVIDERS: ADMIT Internal Medicine; ATTEND Internal Medicine
DX: J44.1 Chronic obstructive pulmonary disease with (acute) exacerbation (principal); J18.9 Pneumonia, unspecified organism; J44.0 Chronic obstructive pulmonary disease with (acute) lower respiratory infection; G89.29 Other chronic pain; R53.1 Weakness; R09.02 Hypoxemia; M54.9 Dorsalgia, unspecified; H54.7 Unspecified visual loss; I10 Essential (primary) hypertension; M54.2 Cervicalgia; R00.0 Tachycardia, unspecified; Z20.822 Contact with and (suspected) exposure to COVID-19; Z79.52 Long term (current) use of systemic steroids; Z79.899 Other long term (current) drug therapy; Z87.01 Personal history of pneumonia (recurrent); Z90.49 Acquired absence of other specified parts of digestive tract; Z98.1 Arthrodesis status
CPT/HCPCS: 0240U; 36415; 71045; 71045-26; 71275; 71275-26; 80048; 80053; 81001; 83605; 83690; 83735; 84484; 85025; 85379; 87040; 87086; 93005; 94640; 96365; 96375; 97161-GP; 99222; 99231; 99232; 99238; 99285-25; A9270-GY; J0456; J0696; J1650; J2920; J2930; J7030; J7050; J7620-GY; Q9967

== ENCOUNTER 2021-08-26 12:31 | Emergency (ER) | payer MEDICARE, MEDICAID ==
[2021-08-26] MEDS ORDERED: Sodium Chloride 0.9% 1,000 ML IV ONE (12:49)
[2021-08-26] MEDS ORDERED: Sodium Chloride 0.9% 2.5 ML Syringe FLUSH PRN (12:49)
[2021-08-26] MEDS ORDERED: Sodium Chloride 0.9% 10 ML Syringe FLUSH PRN (12:49)
--- NOTE | 2021-08-26 12:51 | EDM.PDOC ---
ED HPI GENERAL MEDICAL PROBLEM - General Chief Complaint: General Stated Complaint: EMS Time Seen by Provider: 08/26/21 12:40 - History of Present Illness INITIAL COMMENTS - FREE TEXT/NARRATIVE: History of present illness: [] Patient says today she feels so weak she cannot walk. Her legs give out. She does not have any specific other signs of systemic illness. She was admitted 08/14/2021 for 5 night stay for pneumonia and exacerbation of COPD. The patient improved and when she went home she was able to get about better. She does not have any fever or chills. Her appetite is good but she is not thirsty. She does not drink very much and she does not make urine very often. Review of systems: As per history of present illness and below otherwise all systems reviewed and negative. Past medical history: As per history of present illness and as reviewed below otherwise noncontributory. Surgical history: As per history of present illness and as reviewed below otherwise noncontributory. Social history: No reported history of drug or alcohol abuse. Family history: As per history of present illness and as reviewed below otherwise noncontributory. Physical exam: Constitutional - well developed, well-nourished and in no acute distress HEENT - normocephalic, no evidence of trauma - external nose and mouth normal - no mass in neck and no JVD - mucosae moist EYES - full EOM, PERRL, no icterus - no evidence of inflammation, injection, or drainage Respiratory - no respiratory distress, equal bilateral expansion, lungs clear to auscultation and no abnormal lung sounds Cardiovascular - Regular Rhythm with S1 and S2 appreciated and no murmur, gallop or rub. GI - abdomen soft without distension or organomegaly - normal bowel sounds - no guard or rebound Musculoskeletal no gross deformity of long bones or joints - no tenderness, swelling or edema Neurologic - Alert and oriented times four - CN II-XII grossly intact - motor sensory and coordination symmetrically normal Psychiatric - appropriate mood and affect with normal thought content Hematologic - No petechiae or purpura - mucosa appropriate color and sclera not pale - normal nail bed color and refill Integument - no rash or evidence of trauma - normal turgor Diagnostics: [] Therapeutics: [] Impression: [] Plan: [] Definitive disposition and diagnosis as appropriate pending reevaluation and review of above. - Related Data Allergies Allergy/AdvReac Type Severity Reaction Status Date / Time No Known Allergies Allergy Verified 08/26/21 12:38 Home Meds: Home Meds Baclofen [Lioresal] 10 - 20 mg PO TID PRN 10/07/16 [History] amLODIPine [Norvasc] 5 mg PO DAILY 10/07/16 [History] oxyCODONE HCl/Acetaminophen [Percocet 10-325 mg Tablet] 1 tab PO QID PRN 10/07/16 [History] Docusate Sodium [Stool Softener] 50 mg PO DAILY 04/24/20 [History] Lidocaine 1 each TP DAILY 04/24/20 [History] Potassium Citrate [Potassium Citrate ER] 5 meq PO DAILY 04/24/20 [History] fentaNYL [Duragesic] 1 patch TD Q72H 04/24/20 [History] Doxycycline [Vibramycin] 100 mg PO DAILY #3 tab 08/19/21 [Rx] predniSONE [Prednisone] 20 - 40 mg PO DAILY #7 tablet 08/19/21 [Rx] Past Medical History - Past Health History Medical/Surgical History: Denies Medical/Surgical History HEENT History: Reports: Impaired Vision Cardiovascular History: Reports: Hypertension Respiratory History: Reports: Pneumonia, Recurrent Other Respiratory History: Pneumonia Gastrointestinal History: Reports: None Genitourinary History: Reports: None NURSES DIRECTOR History: Reports: Musculoskeletal History: Reports: Back Pain, Chronic, Neck Pain, Chronic Other Musculoskeletal History: chronic neck pain Neurological History: Reports: None Psychiatric History: Reports: None Endocrine/Metabolic History: Reports: None Hematologic History: Reports: None Immunologic History: Reports: None Oncologic (Cancer) History: Reports: None Dermatologic History: Reports: None - Infectious Disease History Infectious Disease History: Reports: None - Past Surgical History Head Surgeries/Procedures: Reports: None HEENT Surgical History: Reports: None Cardiovascular Surgical History: Reports: None GI Surgical History: Reports: Cholecystectomy Female Surgical History: Reports: Section Endocrine Surgical History: Reports: None Neurological Surgical History: Reports: C-Spine, Spinal Fusion, Thoracic Spine Musculoskeletal Surgical History: Reports: Other (See Below) Other Musculoskeletal Surgeries/Procedures:: Neck sugery Oncologic Surgical History: Reports: None Dermatological Surgical History: Reports: None Social & Family History - Family History Family Medical History: No Pertinent Family History - Caffeine Use Caffeine Use: Reports: Coffee Caffeine Use Comment: 2-3cups/day ED ROS GENERAL - Review of Systems Review Of Systems: Comprehensive ROS is negative, except as noted in HPI. ED EXAM, GENERAL - Physical Exam Exam: See Below Free Text/Narrative:: My physical exam is in the HPI Course - Vital Signs Last Recorded V/S: Last Vital Signs Temp 36.2 C 08/26/21 12:38 Pulse 80 08/26/21 14:00 Resp 18 08/26/21 12:38 BP 110/59 L 08/26/21 14:00 Pulse Ox 91 L 08/26/21 14:00 - Orders/Labs/Meds Orders: Active Orders 24 hr Category Date Time Status Communication Order [RC] STAT Care 08/26/21 15:11 Active Sodium Chloride 0.9% [Saline Flush] Med 08/26/21 12:49 Active 10 ml FLUSH ASDIRECTED PRN Sodium Chloride 0.9% [Saline Flush] Med 08/26/21 12:49 Active 2.5 ml FLUSH ASDIRECTED PRN Saline Lock Insert [OM.PC] Stat Oth 08/26/21 12:49 Ordered Medication Orders Sodium Chloride (Sodium Chloride 0.9% 10 Ml Syringe) 10 ml FLUSH ASDIRECTED PRN PRN Reason: Keep Vein Open Last Admin: 08/26/21 13:15 Dose: 10 ml Documented by: FRANK Sodium Chloride (Sodium Chloride 0.9% 2.5 Ml Syringe) 2.5 ml FLUSH ASDIRECTED PRN PRN Reason: Keep Vein Open Last Admin: 08/26/21 13:15 Dose: 2.5 ml Documented by: FRANK Labs: Laboratory Tests 08/26/21 08/26/21 08/26/21 Range/Units 12:34 13:15 13:15 WBC 9.13 (4.0-11.0) K/uL RBC 3.78 L (4.30-5.90) M/uL Hgb 12.6 (12.0-16.0) g/dL Hct 35.8 L (36.0-46.0) % MCV 94.7 (80.0-98.0) fL MCH 33.3 H (27.0-32.0) pg MCHC 35.2 (31.0-37.0) g/dL RDW Std Deviation 45.4 (28.0-62.0) fl RDW Coeff of Carrie 13 (11.0-15.0) % Plt Count 275 (150-400) K/uL MPV 9.50 (7.40-12.00) fL Neut % (Auto) 61.0 (48.0-80.0) % Lymph % (Auto) 25.5 (16.0-40.0) % [place] % (Auto) 11.5 (0.0-15.0) % Eos % (Auto) 1.9 (0.0-7.0) % Baso % (Auto) 0.1 (0.0-1.5) % Neut # (Auto) 5.6 (1.4-5.7) K/uL Lymph # (Auto) 2.3 (0.6-2.4) K/uL [place] # (Auto) 1.1 H (0.0-0.8) K/uL Eos # (Auto) 0.2 (0.0-0.7) K/uL Baso # (Auto) 0.0 (0.0-0.1) K/uL Nucleated RBC % 0.0 /100WBC Nucleated RBCs # 0 K/uL Sodium 134 L (136-145) mmol/L Potassium 3.2 L (3.5-5.1) mmol/L Chloride 96 L (98-107) mmol/L Carbon Dioxide 26.9 (21.0-32.0) mmol/L BUN 11 (7.0-18.0) mg/dL Creatinine 0.7 (0.6-1.0) mg/dL Est Cr Clr Drug Dosing 77.11 mL/min Estimated GFR (MDRD) > 60.0 ml/min Glucose 95 (74-106) mg/dL Calcium 8.8 (8.5-10.1) mg/dL Magnesium 1.5 L (1.8-2.4) mg/dL Total Bilirubin 0.6 (0.2-1.0) mg/dL AST 24 (15-37) IU/L ALT 31 (14-63) IU/L Alkaline Phosphatase 115 (46-116) U/L Troponin I < 0.050 (0.000-0.056) ng/mL Total Protein 6.9 (6.4-8.2) g/dL Albumin 2.8 L (3.4-5.0) g/dL Globulin 4.1 H (2.6-4.0) g/dL Albumin/Globulin Ratio 0.7 L (0.9-1.6) Free T4 (0.76-1.46) ng/dL Free T3 (2.18-3.98) pg/mL TSH, Ultra Sensitive 5.09 H (0.36-3.74) uIU/mL Influenza Type A RNA NEGATIVE (NEGATIVE) Influenza Type B RNA NEGATIVE (NEGATIVE) SARS-CoV-2 RNA (CLAY) NEGATIVE (NEGATIVE) 08/26/21 Range/Units 13:15 WBC (4.0-11.0) K/uL RBC (4.30-5.90) M/uL Hgb (12.0-16.0) g/dL Hct (36.0-46.0) % MCV (80.0-98.0) fL MCH (27.0-32.0) pg MCHC (31.0-37.0) g/dL RDW Std Deviation (28.0-62.0) fl RDW Coeff of Carrie (11.0-15.0) % Plt Count (150-400) K/uL MPV (7.40-12.00) fL Neut % (Auto) (48.0-80.0) % Lymph % (Auto) (16.0-40.0) % [place] % (Auto) (0.0-15.0) % Eos % (Auto) (0.0-7.0) % Baso % (Auto) (0.0-1.5) % Neut # (Auto) (1.4-5.7) K/uL Lymph # (Auto) (0.6-2.4) K/uL [place] # (Auto) (0.0-0.8) K/uL Eos # (Auto) (0.0-0.7) K/uL Baso # (Auto) (0.0-0.1) K/uL Nucleated RBC % /100WBC Nucleated RBCs # K/uL Sodium (136-145) mmol/L Potassium (3.5-5.1) mmol/L Chloride (98-107) mmol/L Carbon Dioxide (21.0-32.0) mmol/L BUN (7.0-18.0) mg/dL Creatinine (0.6-1.0) mg/dL Est Cr Clr Drug Dosing mL/min Estimated GFR (MDRD) ml/min Glucose (74-106) mg/dL Calcium (8.5-10.1) mg/dL Magnesium (1.8-2.4) mg/dL Total Bilirubin (0.2-1.0) mg/dL AST (15-37) IU/L ALT (14-63) IU/L Alkaline Phosphatase (46-116) U/L Troponin I (0.000-0.056) ng/mL Total Protein (6.4-8.2) g/dL Albumin (3.4-5.0) g/dL Globulin (2.6-4.0) g/dL Albumin/Globulin Ratio (0.9-1.6) Free T4 1.18 (0.76-1.46) ng/dL Free T3 3.15 (2.18-3.98) pg/mL TSH, Ultra Sensitive (0.36-3.74) uIU/mL Influenza Type A RNA (NEGATIVE) Influenza Type B RNA (NEGATIVE) SARS-CoV-2 RNA (CLAY) (NEGATIVE) Meds: Medications Generic Name Dose Route Start Last Admin Trade Name Freq PRN Reason Stop Dose Admin Sodium Chloride 10 ml 08/26/21 12:49 08/26/21 13:15 Sodium Chloride 0.9% 10 Ml Syringe FLUSH 10 ml ASDIRECTED PRN Administration Keep Vein Open Sodium Chloride 2.5 ml 08/26/21 12:49 08/26/21 13:15 Sodium Chloride 0.9% 2.5 Ml Syringe FLUSH 2.5 ml ASDIRECTED PRN Administration Keep Vein Open Discontinued Medications Generic Name Dose Route Start Last Admin Trade Name Freq PRN Reason Stop Dose Admin Sodium Chloride 1,000 mls @ 999 mls/hr 08/26/21 12:49 08/26/21 13:15 Normal Saline IV 08/26/21 13:49 999 mls/hr .Bolus ONE Administration - Re-Assessments/Exams Free Text/Narrative Re-Assessment/Exam: 08/26/21 16:03 Patient ambulates well with a walker Departure - Departure Time of Disposition: 16:03 Disposition: Home, Self-Care 01 Condition: Good Clinical Impression: Weakness, Hypomagnesemia, Hypokalemia - Discharge Information Instructions: Hypomagnesemia, Fatigue, Hypokalemia, Weakness, [id number] Referrals: Chetan Guardado MD [Primary Care Provider] - Forms: ED Department Discharge Additional Instructions: Use a walker to get around. Contact your primary doctor so that they can consider rehab and sling and strength. [facility] - Primary [facility] [address], [place] [address] [facility] [address] [place] [id number] The following information is given to patients seen in the emergency department who are being discharged to home. This information is to outline your options for follow-up care. We provide all patients seen in our emergency department with a follow-up referral. The need for follow-up, as well as the timing and circumstances, are variable depending upon the specifics of your emergency department visit. If you don't have a primary care physician on staff, we will provide you with a referral. We always advise you to contact your personal physician following an emergency department visit to inform them of the circumstance of the visit and for follow-up with them and/or the need for any referrals to a consulting specialist. The emergency department will also refer you to a specialist when appropriate. This referral assures that you have the opportunity for follow-up care with a specialist. All of these measure are taken in an effort to provide you with optimal care, which includes your follow-up. Under all circumstances we always encourage you to contact your private physician who remains a resource for coordinating your care. When calling for follow-up care, please make the office aware that this follow-up is from your recent emergency room visit. If for any reason you are refused follow-up, please contact the [facility] Emergency Department at and asked to speak to the emergency department charge nurse. Sepsis Event Note (ED) - Evaluation Sepsis Screening Result: No Definite Risk - Focused Exam Vital Signs: Vital Signs Temp Pulse Resp BP Pulse Ox 08/26/21 14:00 80 110/59 L 91 L 08/26/21 13:00 87 89/55 L 97 08/26/21 12:38 36.2 C 114 H 18 109/71 91 L - My Orders Last 24 Hours: My Active Orders 08/26/21 12:49 Sodium Chloride 0.9% [Saline Flush] 10 ml FLUSH ASDIRECTED PRN Sodium Chloride 0.9% [Saline Flush] 2.5 ml FLUSH ASDIRECTED PRN Saline Lock Insert [OM.PC] Stat 08/26/21 15:11 Communication Order [RC] STAT - Assessment/Plan Last 24 Hours: My Active Orders 08/26/21 12:49 Sodium Chloride 0.9% [Saline Flush] 10 ml FLUSH ASDIRECTED PRN Sodium Chloride 0.9% [Saline Flush] 2.5 ml FLUSH ASDIRECTED PRN Saline Lock Insert [OM.PC] Stat 08/26/21 15:11 Communication Order [RC] STAT
[2021-08-26 13:31] LABS: CORONAVIRUS COVID-19 NAA NEGATIVE (NEGATIVE); INFLUENZA A NAA NEGATIVE (NEGATIVE); INFLUENZA B NAA NEGATIVE (NEGATIVE)
[2021-08-26 14:10] LABS: BLOOD UREA NITROGEN,BUN 11 mg/dL (7.0-18.0); CARBON DIOXIDE,CO2 26.9 mmol/L (21.0-32.0); CHLORIDE,CL 96 mmol/L (98-107); GLUCOSE RANDOM 95 mg/dL (74-106); POTASSIUM,K 3.2 mmol/L (3.5-5.1); SODIUM,NA 134 mmol/L (136-145)
[2021-08-26 20:01] VITALS: BP 115/70; PULSE 86
== END 2021-08-26 16:32 | disposition home or self-care (01) ==
LOC: MW.ED 12:31
DX: E83.42 Hypomagnesemia (principal); E87.6 Hypokalemia; I10 Essential (primary) hypertension; Z79.899 Other long term (current) drug therapy; Z20.822 Contact with and (suspected) exposure to COVID-19
CPT/HCPCS: 0240U; 36415; 80053; 83735; 84439; 84443; 84481; 84484; 85025; 99285; J7030

== ENCOUNTER 2022-10-18 16:00 | Emergency (ER) | payer MEDICARE, MEDICAID ==
[~2022-10-18 16:00] MED LIST: Rocuronium 100 MG/10 ML MDV IV ONE
[2022-10-18] MEDS ORDERED: propofoL 100 ML ONE (16:08)
[2022-10-18] MEDS ORDERED: fentaNYL 100 MCG/2 ML SDV ONE (16:13)
[2022-10-18 16:22] VITALS: BP 142/104; PULSE 117
[2022-10-18 16:41] LABS: CARBON DIOXIDE,CO2 20.6 mmol/L (21.0-32.0)
[2022-10-18] MEDS ORDERED: Iopamidol 755 MG/ML 500 ML Multipack Bottle IVPUSH ONE (16:43)
[2022-10-18] MEDS ORDERED: niCARdipine/Normal Saline 20 MG/200 ML BAG IV SCH (16:45)
[2022-10-18] MEDS ORDERED: Etomidate 2 MG/ML 20 ML SDV IVPUSH ONE (17:37)
[2022-10-18] MEDS ORDERED: Rocuronium 50 MG/5 ML Vial IV ONE (17:37)
[2022-10-18] MEDS ORDERED: fentaNYL 100 MCG/2 ML SDV IVPUSH ONE (17:40)
[2022-10-18] MEDS ORDERED: propofoL 100 ML IV SCH (17:45)
== END 2022-10-18 17:07 ==
LOC: MW.ED 16:00
DX: S32.120A Nondisplaced Zone II fracture of sacrum, initial encounter for closed fracture (principal); S32.314A Nondisplaced avulsion fracture of right ilium, initial encounter for closed fracture; S06.360A Traumatic hemorrhage of cerebrum, unspecified, without loss of consciousness, initial encounter; S06.5X0A Traumatic subdural hemorrhage without loss of consciousness, initial encounter; I10 Essential (primary) hypertension; Z79.899 Other long term (current) drug therapy; Z90.49 Acquired absence of other specified parts of digestive tract; W10.9XXA Fall (on) (from) unspecified stairs and steps, initial encounter
CPT/HCPCS: 31500; 36415; 70450; 71045; 71260; 72125; 72170; 74177; 80053; 80305; 83690; 83735; 84484; 85025; 86803; 87340; 87389; 96374; 96375; 99285; J2704; J3010; J3490; Q9967